=== PATIENT | male | born 1955 | race Caucasian/White ===

== ENCOUNTER 2024-04-04 11:07 | Outpatient (OUT) | payer OTHER, SELFPAY ==
[2024-04-04 11:56] LABS: Basophils Absolute Auto 0.1 10^3/uL (0.0-0.1); Basophils Percent Auto 0.9 % (0.2-2.0); Eosinophils Absolute Auto 0.3 10^3/uL (0.0-0.7); Eosinophils Percent Auto 4.6 % (0.9-7.0); Hematocrit 39.5 % (42.0-54.0); Hemoglobin 13.5 g/dL (14.0-18.0); Immature Granulocytes Abs Auto 0.04 10^3/uL (0.00-0.03); Immature Granulocytes Pct Auto 0.7 % (0.0-0.5); Lymphocytes Absolute Auto 1.6 10^3/uL (1.2-3.8); Lymphocytes Percent Auto 27.6 % (20.5-60.0); Mean Corpuscular HGB Conc 34.2 g/dL (29.9-35.2); Mean Corpuscular Hemoglobin 32.3 pg (25.9-34.0); Mean Corpuscular Volume 94.5 fL (80.0-94.0); Mean Platelet Volume 9.9 fL (9.5-13.5); Monocytes Absolute Auto 0.6 10^3/uL (0.3-0.8); Monocytes Percent Auto 9.9 % (1.7-12.0); Neutrophils Absolute Auto 3.3 10^3/uL (1.4-6.5); Neutrophils Percent Auto 56.3 % (43.0-75.0); Platelet Count 189 10^3/uL (150-450); Red Blood Count 4.18 10^6/uL (4.70-6.10); Red Cell Distribution Width 12.6 % (11.0-15.0); White Blood Count 5.9 10^3/uL (4.0-11.0)
[2024-04-04 14:05] LABS: Alanine Aminotransferase 38 U/L (16-63); Albumin Level 3.4 g/dL (3.4-5.0); Alkaline Phosphatase 74 U/L (46-116); Anion Gap 15.4; Aspartate Amino Transferase 22 U/L (15-37); BUN Creatinine Ratio 23.3; Bilirubin Total 0.5 mg/dL (0.2-1.0); Calcium 8.5 mg/dL (8.5-10.1); Carbon Dioxide 24.4 mmol/L (21.0-32.0); Chloride 105 mmol/L (98-107); Chol HDL Ratio 4.4; Cholesterol 164 mg/dL (<=200); Estimated GFR (African America >60 (>=60); Estimated GFR (Non-African Ame >60 (>=60); Free T3 1.91 pg/mL (2.18-3.98); Globulin 3.4 g/dL; Glucose 117 mg/dL (74-106); HDL Cholesterol 37 mg/dL (40-60); Potassium 3.8 mmol/L (3.5-5.1); Sodium 141 mmol/L (136-145); Thyroid Stimulating Hormone 1.445 uIU/mL (0.358-3.740); Total Protein 6.8 g/dL (6.4-8.2); Triglycerides 330 mg/dL (<=150); Uric Acid 7.5 mg/dL (3.5-7.2)
[2024-04-04 15:26] LABS: Estimated Average Glucose 114 mg/dL; Glycohemoglobin A1C 5.6 % (4.5-6.2)
== END 2024-04-04 11:08 | disposition home or self-care (01) ==
LOC: LAB 11:11
PROVIDERS: PCP Family Medicine; Visit Provider Family Medicine
DX: Z00.00 Encounter for general adult medical examination without abnormal findings (principal)
CPT/HCPCS: 36415; 80053; 80061; 83036; 84436; 84443; 84481; 84550; 85025

== ENCOUNTER 2024-05-10 12:34 | Outpatient (OUT) | payer OTHER, SELFPAY ==
[2024-05-10 13:16] LABS: Free T3 1.59 pg/mL (2.18-3.98); Thyroid Stimulating Hormone 1.188 uIU/mL (0.358-3.740)
== END 2024-05-10 12:35 | disposition home or self-care (01) ==
LOC: LAB 12:35
PROVIDERS: PCP Family Medicine; Visit Provider Family Medicine
DX: E03.9 Hypothyroidism, unspecified (principal)
CPT/HCPCS: 36415; 84436; 84443; 84481

== ENCOUNTER 2024-08-07 10:53 | Outpatient (OUT) | payer OTHER, SELFPAY ==
--- OUTSIDE RECORDS SUMMARY | 2024-08-07 11:16 | XMS_ITS | CCD ---
Author Organization [facility] Care Team Providers Care Precision Grinder External Name Role Phone Agnes Villalobos Unavailable NO FAMILY, PHYSICIAN Primary Care Provider Unava EMERSON Justin Attending Provider Agnes Villalobos Admitting Unavailable Agnes Villalobos Attending Unavailable NO FAMILY, PHYSICIAN Primary Care Unavailable NONE, XXXX Primary Care Physician Unavailab mary TY ., ANAHI Attending Unavailable JACINTA .ROSA Consulting UnavailANAHI Burt Admitting Unavailable RADHA ., DR BARAJAS Consulting Unavailable HOY ., DR BARAJAS Attending Unavailable HOY ., DR BARAJAS Admitting Unavailable RADHA ., DR BARAJAS Primary Care Unavailable RADHA ., DR BARAJAS Consulting Unavailable RADHA ., DR BARAJAS Attending Unavailable CARLAY ., DR BARAJAS Admitting Unavailable RADHA ., DR BARAJAS Primary Care Unavailable Karl Garcia MD Primary Care Provider JUSTICE CORDON Referring Unavailable Karl Garcia Primary Care Physician [phone] Petros SANCHEZ Attending Unavailable Karl Garcia Referring Unavailable Allergies Allergy Classification Reported Allergen(s) Allergy Type Date of Onset Reaction(s) Facility (8 sources) Sulfacetamide / Sulfur Drug Allergy Unknown iSpecimen Other (4 sources) Sulfonamides (Antibiotic); Translations: [sulfa drugs] Drug allergy eyes [facility] (1 source) Sulfonamides (Antibiotic) Drug allergy (disorder) [facility] (1 source) Sulfonamides (Antibiotic) Propensity to adverse reactions to drug 8 [facility] Medications Current Medications Medication Drug Class(es) Dates Sig (Normalized) Sig (Original) allopurinol 100 mg oral tablet (8 sources) Xanthine Oxidase Inhibitor Start: 01-22-2022 take 1 tablet by mouth once daily as needed for pain allopurinol 100 mg Tab 100 mg = 1 tab(s), Oral, Daily, PRN Gout pain, Refills(s) 0 Start Date: 12/29/22 Status: Ordered Aspir-81 (8 sources) Aspir-81 Active aspirin 81 mg delayed release oral tablet (6 sources) Platelet Aggregation Inhibitor, Nonsteroidal Anti-inflammatory Drug Start: 01-19-2023 take 1 tablet by mouth twice daily aspirin 81 mg Oral EC Tab 81 mg = 1 tab(s), Oral, BID, # 60 tab(s), Refills(s) 0, Pharmacy: [id number], 190, cm, 12/29/22 13:55:00 EST, Height/Length Dosing, 112.4, kg, 12/29/22 13:55:00 EST, Weight Dosing Start Date: 01/19/23 Status: Ordered Start: 12-29-2022 take 1 capsule by mouth once d aily aspirin 81 mg oral capsule 81 mg = 1 cap(s), Oral, Daily, Blood Thinner Start Date: 12/29/22 Status: Ordered Start: 12-01-2017 take 1 tablet by mouth once da eli aspirin 81 mg Take 1 tablet (81 mg total) by mouth daily. 30 tablet 11 12/01/2017 Active atenolol 50 mg oral tablet (12 sources) beta-Adrenergic Prabhjot Start: 12-29-2022 take 1 tablet by mouth in the morning atenoloL (TENORMIN) 50 mg tablet Take 1 tablet (50 mg total) by mouth in the morning. 90 tablet 3 04/23/2023 Active cefadroxil 500 mg oral capsule (1 source) Cephalosporin Antibacterial Start: 01-19-2023 End: 01-21-2023 take 1 capsule by mouth every twelve hours cefadroxil 500 mg Cap 500 mg = 1 cap(s), Oral, q12hr, X 2 day(s), # 4 cap(s), Refills(s) 0, Pharmacy: [facility] #[id number], 190, cm, 12/29/22 13:55:00 EST, Height/Length Dosing, 112.4, kg, 12/29/22 13:55:00 EST, Weight Dosing Start Date: 01/19/23 Stop Date: 01/21/23 Status: Ordered Celebrate Multivitamin (2 sources) Start: 12-29-2022 take 1 tablet by mouth once daily Celebrate Multivitamin 1 tab(s), Oral, Daily, Prophylaxis Start Date: 12/29/22 Status: Ordered cyclobenzaprine hydrochloride 10 mg oral tablet (1 source) Muscle Relaxant Start: 11-28-2022 take 1 tablet by mouth every eight hours Cyclobenzaprine HCl 10 MG 1 tablet as needed Orally Three times a day for 10 days Nov, Active diclofenac sodium 75 mg delayed release oral tablet (15 sources) Nonsteroidal Anti-inflammatory Drug Start: 12-29-2022 take 1 tablet by mouth once daily diclofenac sodium 75 mg Oral EC Tab 75 mg = 1 tab(s), Oral, Daily Start Date: 12/29/22 Status: Ordered Start: 02-07-2022 take 1 tablet by jey th twice daily diclofenac sodium 75 mg Oral EC Tab 75 mg = 1 tab(s), Oral, BID Start Date: 12/29/22 Status: Ordered Start: 01-22-2022 take 1 tablet by jey th every twenty-four hours Diclofenac Sodium 75 MG 1 tablet as needed Orally Once Daily for 90 day(s) Dec, Active Diclofenac Activ e docosahexaenoic acid/epa (FISH OIL ORAL) (1 source) docosahexaenoic acid/epa (FISH OIL ORAL) Take by mouth daily. 0 Active docusate sodium 100 mg oral capsule (2 sources) Start: 01-19-2023 take 1 capsule by mouth twice daily as needed for constipation Colace 100 mg Cap 100 mg = 1 cap(s), Oral, BID, PRN for constipation, # 40 cap(s), Refills(s) 0, Pharmacy: [facility] #[id number], 190, cm, 12/29/22 13:55:00 EST, Height/Length Dosing, 112.4, kg, 12/29/22 13:55:00 EST, Weight Dosing Start Date: 01/19/23 Status: Ordered Fish Oils (3 sources) Start: 05-09-2024 take 2 capsules by mouth twice daily Fish Oil 1000 mg oral capsule 2,000 mg = 2 cap(s), Oral, BID, Refills(s) 0 Start Date: 05/09/24 Status: Ordered Start: 12-29-2022 take 1 capsule by mo uth once daily Fish Oil 1000 mg oral capsule 1,000 mg = 1 cap(s), Oral, Daily, Prophylaxis Start Date: 12/29/22 Status: Ordered flecainide acetate 100 mg oral tablet (12 sources) Antiarrhythmic Start: 12-29-2022 take 1 tablet by mouth every twelve hours flecainide 100 mg Tab 100 mg = 1 tab(s), Oral, q12hr, Refills(s) 0, Other (see comment) Start Date: 12/29/22 Status: Ordered Start: 11-03-2022 take 1 tablet by jey th twice daily flecainide (TAMBOCOR) 100 mg tablet Indications: Paroxysmal atrial fibrillation (CMS-HCC) TAKE 1 TABLET(100 MG) BY MOUTH TWICE DAILY 60 tablet 0 11/03/2022 Active Flecainide Aceta te Active [id number] ORAL (1 source) GLUCOSAMINE-COND [id number] ORAL Take by mouth daily. 0 Active hydrALAZINE hydrochloride 25 mg oral tablet (2 sources) Arteriolar Vasodilator S t a r t : 0 5 - 1 0 - 2 0 2 3 E n d : 0 1 - 2 2 - 2 0 2 4 take 1 tablet by mouth once daily in the morning, then take 1 tablet by mouth once daily at bedtime hydrALAZINE (APRESOLINE) 25 mg tablet Indications: Essential hypertension, benign TAKE 1 TABLET BY MOUTH EVERY MORNING AND 1 TABLET EVERY NIGHT AT BEDTIME 180 tablet 0 11/22/2023 Active hydroCHLOROthiazide 12.5 mg / lisinopril 20 mg oral tablet (8 sources) Thiazide Diuretic, Angiotensin Converting Enzyme Inhibitor S t a r t : 0 5 - 0 3 - 2 0 2 3 take 2 tablets by mouth once in the morning lisinopril-hydroCHLOROthiazide (PRINZIDE,ZESTORETIC) 20-12.5 mg per tablet Take 2 tablets by mouth in the morning. FINAL REFILL, PT WILL NEED MAGNESIUM LEVEL FOR FURTHER REFILLS. 60 tablet 0 03/03/2023 Active Start: 12-29-2022 take 1 tablet by jey th once daily hydrochlorothiazide-lisinopril 12.5 mg-2 0 mg Tab 1 tab(s), Oral, Daily, High blood pressure Start Date: 12/29/22 Status: Ordered Start: 11-29-2021 take 1 tablet by jey th every twenty-four hours Lisinopril-hydroCHLOROthiazide 20-12.5 M G 1 tablet Orally Once a day for 90 day(s) Nov, Active lisinopril 20 mg oral tablet (8 sources) Angiotensin Converting Enzyme Inhibitor take 1 tablet by mouth every twenty-four hours Lisinopril 20 MG 1 tablet Orally Once a day for 90 days Active methylPREDNISolone 4 mg oral tablet (1 source) Corticosteroid Star t: 11-02 methylPREDNISolone 4 MG as directed Orally Once a day for 6 days Nov, Active Multi Vitamins oral tablet (1 source) Star t: 07-21 take 1 tablet by mouth once daily Multi Vitamins oral tablet 1 tab(s), Oral, Daily, Refill(s) 0 Start Date: 05/09/24 Status: Ordered multivitamin capsule (1 source) take 1 capsule by mouth in the morning multivitamin capsule Take 1 capsule by mouth in the morning. 0 Active oxyCODONE hydrochloride 5 mg oral tablet (2 sources) Opioid Agonist Star t: 12-31 oxyCODONE 5 mg Tab 5 mg = 1 tab(s), Oral, As Directed, 1-2 po q4-6 hrs prn pain Dx: M16.12, Z96.642 Duration: 7days, # 40 tab(s), Refills(s) 0, Pharmacy: [facility] #[id number], 190, cm, 12/29/22 13:55:00 EST, Height/Length Dosing, 112.4, kg, 12/29/22 13:55:00... Start Date: 01/19/23 Status: Ordered sildenafil 100 mg oral tablet (19 sources) Phosphodiesterase 5 Inhibitor Star t: 04-01 sildenafil 100 mg Tab 100 mg = 1 tab(s), Oral, q72hr, PRN erectile dysfunction, Refills(s) 0 Start Date: 04/11/24 Status: Ordered Start: 11-10-2021 take 1 tablet by jey th every twenty-four hours Sildenafil Citrate 100 MG 1 tablet as needed Orally Once a day for 24 days Nov, Active Start: 11-10-2021 take 1 tablet by jey th once daily as needed Sildenafil Citrate - 1 tablet as needed Orally Once a day for 24 days Nov, Active Sildenafil Citra te Active Turmeric extract (1 source) TURMERIC ORAL Ta ke by mouth daily. 0 Active Vitamin B Complex (1 source) vitamin B comple x (B COMPLEX ORAL) Take by mouth daily. 0 Active Vitamin B Complex oral capsule (2 sources) Start: 12-29-2022 take 1 capsule by mouth once daily Vitamin B Complex oral capsule 1 cap(s), Oral, Daily, Prophylaxis Start Date: 12/29/22 Status: Ordered Vitamin D 1000 intl units (25 mcg) Tab (2 sources) Start: 12-29-2022 take 1 tablet by mouth once daily Vitamin D 1000 intl units (25 mcg) Tab 25 mcg = 1 tab(s), Oral, Daily Start Date: 12/29/22 Status: Ordered Problems Active Problems Problem Classification Problem Date Documented Date Episodic/Chronic Acute bronchitis (8 sources) Acute bronchitis; Translations: [Acute bronchitis] Episodic Cardiac dysrhythmias (12 sources) Atrial fibrillation; Translations: [Unspecified atrial fibrillation] Onset: 09-29-2021 Resolved: 09-29-2021 Chronic Conduction disorders (1 source) First degree atrioventricular block; Translations: [Atrioventricular block, first degree] Onset: 11-07-2020 11-07-2020 Chronic Deficiency and other anemia (2 sources) Anemia; Translations: [Anemia, unspecified] Onset: 05-09-2024 Episodic Essential hypertension (17 sources) Essential hypertension; Translations: [Essential (primary) hypertension] Onset: 09-29-2021 Resolved: 09-29-2021 Chronic Gout and other crystal arthropathies (1 source) Gout 04-11-2024 Chronic Heart valve disorders (1 source) Mitral valve regurgitation; Translations: [Nonrheumatic mitral (valve) insufficiency] Onset: 10-16-2019 10-16-2019 Chronic Osteoarthritis (6 sources) Degenerative joint disease involving multiple joints; Translations: [Polyosteoarthritis, unspecified] Chronic Other aftercare (1 source) termite treater helper (current) use of aspirin; Translations: [TECHNOLOGY INTEGRATION SPECIALIST CURRENT USE OF ASPIRIN] Onset: 01-04-2023 Episodic Other aftercare (1 source) Other retirement (current) drug therapy; Translations: [OTH TECHNOLOGY INTEGRATION SPECIALIST CURRENT DRUG THERAPY] Onset: 01-04-2023 Episodic Other circulatory disease (3 sources) H/O: atrial fibrillation 12-29-2022 Episodic Other male genital disorders (2 sources) Secondary erectile dysfunction; Translations: [Erectile dysfunction due to diseases classified elsewhere] Chronic Other male genital disorders (1 source) Erectile dysfunction due to diseases classified elsewhere Chronic Other male genital disorders (1 source) Impotence 04-11-2024 Chronic Other non-traumatic joint disorders (1 source) Pain in left hip Episodic Other nutritional; endocrine; and metabolic disorders (1 source) Body mass index 30+ - obesity 05-09-2024 Chronic Other nutritional; endocrine; and metabolic disorders (1 source) Obese class III 04-11-2024 Chronic Other screening for suspected conditions (not mental disorders or infectious disease) (1 source) Electrocardiogram abnormal; Translations: [Abnormal electrocardiogram [ECG] [EKG]] 11-29-2017 Episodic Unclassified (1 source) Pain in left hip; Translations: [Pain in left hip] Onset: 11-28-2022 Urinary tract infections (4 sources) Urinary tract infection, site not specified; Translations: [UTI SITE NOT SPECIFIED] Onset: 02-25-2023 Episodic Past or Other Problems Problem Classification Problem Date Documented Da te Episodic/Chronic Cardiac dysrhythmias (1 source) Palpitations; Translations: [Palpitations] Onset: 12-04-2020 12-04-2020 Episodic Other lower respiratory disease (1 source) Dyspnea; Translations: [Shortness of breath] Onset: 12-04-2020 12-04-2020 Episodic Results Test Name Value Interpretation Reference Range Facility Ambulatory Visit Summaryon 0 05-09-2024 Ambulatory Visit Summary Ambulatory Visit Summary PETROS MEANS :1955 Visit Date:05/09/2024 Ambulatory Visit Instructions Your Diagnosis Anemia Your Care Team Attending Physician - LAURA GRIJALVA, Petros Gutierrez Primary Care Physician - Radha GRIJALVA, Karl Referring Physician - Karl Garcia MD This Is Your Medications List Contact prescribing physician if questions or concerns allopurinol (allopurinol 100 mg Tab) aspirin (aspirin 81 mg oral capsule) atenolol (atenolol 50 mg Tab) diclofenac (diclofenac sodium 75 mg Oral EC Tab) flecainide (flecainide 100 mg Tab) hydrochlorothiazide- lisinopril (hydrochlorothiazide -lisinopril 12.5 mg-20 mg Tab) multivitamin (Multi Vitamins oral tablet) omega-3 polyunsaturated fatty acids (Fish Oil 1000 mg oral capsule) sildenafil (sildenafil 100 mg Tab) Procedures Performed Hip arthroplasty (01/19/2023), History of tonsillectomy (1962), Achilles tendon repair. Discharge Vitals Heart Rate (Peripheral) 72 Respiratory Rate 16 Blood Pressure 128/82 Height 185.4 cm Height 73 in Weight 112 kg Weight 246.4 lb BMI 32.58 Medications What How Much When Instructions Unchanged allopurinol (allopurinol 100 mg Tab) 1 Tablets By Mouth Every day as needed for Gout pain Contact prescribing physician if questions or concerns Unchanged aspirin (aspirin 81 mg oral capsule) 1 Capsules By Mouth Every day Contact prescribing physician if questions or concerns Unchanged atenolol (atenolol 50 mg Tab) 1 Tablets By Mouth Every day Contact prescribing physician if questions or concerns Unchanged diclofenac (diclofenac sodium 75 mg Oral EC Tab) 1 Tablets By Mouth 2 times a day Contact prescribing physician if questions or concerns Unchanged flecainide (flecainide 100 mg Tab) 1 Tablets By Mouth Every 12 hours Contact prescribing physician if questions or concerns Unchanged hydrochlorothiazide- lisinopril (hydrochlorothiazide -lisinopril 12.5 mg-20 mg Tab) 1 Tablets By Mouth Every day Contact prescribing physician if questions or concerns Unchanged multivitamin (Multi Vitamins oral tablet) 1 Tablets By Mouth Every day Contact prescribing physician if questions or concerns Unchanged omega-3 polyunsaturated fatty acids (Fish Oil 1000 mg oral capsule) 2 Capsules By Mouth 2 times a day Contact prescribing physician if questions or concerns Unchanged sildenafil (sildenafil 100 mg Tab) 1 Tablets By Mouth Every 72 hours as needed for erectile dysfunction Contact prescribing physician if questions or concerns Allergies sulfa drugs (eyes swell) Problems Ongoing - Any problem that you are currently receiving treatment for. Anemia Atrial fibrillation BMI 32.0-32.9,adult Class 3 obesity Erectile dysfunction Gout Hypertension Patient Survey You may receive a survey via text or e-mail asking about your office visit. Please share your experience with us by completing your survey. We appreciate your feedback and thank you for choosing us for your care. Normal [facility] Physician Referralon 024 Physician Referral [phone] [id number] Normal [facility] CULTURE URINEon 03-14-2023 CULTURE URINE Isolate 1 Enterobacter aerogenes >100,000 cfu/mL of ORGANISM 1 Enterobacter aerogenes ANTIBIOTIC M.I.C RX STATUS Piperacillin/Tazobac rose >=128 R F Cefazolin >=64 R F Ceftazidime >=64 R F Ceftriaxone 16 I F Ertapenem 1 S F Imipenem 0.5 S F Amikacin <=2 S F Gentamicin <=1 S F Tobramycin <=1 S F Ciprofloxacin <=0.25 S F Levofloxacin <=0.12 S F Nitrofurantoin 64 I F Trimethoprim/Sulfame thoxazole <=20 S F Normal [facility] Comment on above: Performed By: #### U RCX #### [facility] [address] [place] [address] Dr. Pebbles Ayers UA RANDOM W/MICROSCOPICon BACTERIA LARGE Abnormal NONE SEEN [facility] Comment on above: Performed By: #### U AMIC #### [facility] [address] [place] [address] Dr. Pebbles Ayers Bilirubin Ql (U) Negative Normal NEGATIVE [facility] Comment on above: Performed By: #### U AMIC #### [facility] [address] [place] [address] Dr. Pebbles Ayers CAST NONE SEEN Normal NONE SEEN [facility] Comment on above: Performed By: #### U AMIC #### [facility] [address] [place] [address] Dr. Pebbles Ayers Clarity (U) CLEAR Normal CLEAR [facility] Comment on above: Performed By: #### U AMIC #### [facility] [address] [place] [address] Dr. Pebbles Ayers Color (U) YELLOW Normal YELLOW [facility] Comment on above: Performed By: #### U AMIC #### [facility] [address] [place] [address] Dr. Pebbles Ayers Crystals LM Nom (Urine sed) NONE SEEN Normal NONE SEEN [facility] Comment on above: Performed By: #### U AMIC #### [facility] [address] [address] [address] Pebbles Ayers Epithelial cells LM Ql (Urine sed) FEW Abnormal NONE SEEN /RARE [facility] Comment on above: Performed By: #### U AMIC #### [facility] [address] [address] [address] Pebbles Ayers Glucose Ql (U) Negative Normal NEGATIVE [facility] Comment on above: Performed By: #### U AMIC #### [facility] [address] [address] [address] Pebbles Ayers Hemoglobin Ql (U) Negative Normal NEGATIVE [facility] Comment on above: Performed By: #### U AMIC #### [facility] [address] [address] [address] Pebbles Ayers Ketones Ql (U) Negative Normal NEGATIVE [facility] Comment on above: Performed By: #### U AMIC #### [facility] [address] [address] [address] Pebbles Ayers LEUKOCYTES SMALL Abnormal NEGATIVE [facility] Comment on above: Performed By: #### U AMIC #### [facility] [address] [address] [address] Pebbles Ayers MUCOUS NONE SEEN Normal NONE SEEN [facility] Comment on above: Performed By: #### U AMIC #### [facility] [address] [address] [address] Pebbles Ayers Nitrite Ql (U) Negative Normal NEGATIVE [facility] Comment on above: Performed By: #### U AMIC #### [facility] [address] [address] [address] Pebbles Ayers pH (U) 5.5 [pH] Normal 5-9 [facility] Comment on above: Performed By: #### U AMIC #### [facility] [address] [address] [address] Pebbles Ayers RBC NONE SEEN Abnormal 0-2 [facility] Comment on above: Performed By: #### U AMIC #### [facility] [address] [address] [address] Pebbles Ayers SPEC GRAVITY 1.015 Normal 1.005-<=1.025 [facility] Comment on above: Performed By: #### U AMIC #### [facility] [address] [place] [address] Dr. Pebbles Ayers UA PROTEIN Negative Normal NEGATIVE/ TRACE [facility] Comment on above: Performed By: #### U AMIC #### [facility] [address] [place] [address] Dr. Pebbles Ayers Urobilinogen Qn (U) 0.2 {Rainer'U}/dL Normal 0.2 - 1.0 [facility] Comment on above: Performed By: #### U AMIC #### [facility] [address] [place] [address] Dr. Pebbles Ayers WBC 20-50 Abnormal NONE SEEN [facility] Comment on above: Performed By: #### U AMIC #### [facility] [address] [place] [address] Dr. Pebbles Ayers CULTURE URINEon 02-27-2023 CULTURE URINE Isolate 1 Enterobacter aerogenes >100,000 cfu/mL of ORGANISM 1 Enterobacter aerogenes ANTIBIOTIC M.I.C RX STATUS Piperacillin/Tazobac rose <=4 S F Cefazolin <=4 R F Ceftazidime <=1 S F Ceftriaxone <=1 S F Ertapenem <=0.5 S F Imipenem 1 S F Amikacin <=2 S F Gentamicin <=1 S F Tobramycin <=1 S F Ciprofloxacin <=0.25 S F Levofloxacin <=0.12 S F Nitrofurantoin 32 S F Trimethoprim/Sulfame thoxazole <=20 S F Normal [facility] Comment on above: Performed By: #### U RCX #### [facility] [address] [place] [address] Dr. Pebbles Ayers UA RANDOM W/MICROSCOPICon BACTERIA SMALL Abnormal NONE SEEN [facility] Comment on above: Performed By: #### U AMIC #### [facility] [address] [place] [address] Dr. Pebbles Ayers Bilirubin Ql (U) Negative Normal NEGATIVE [facility] Comment on above: Performed By: #### U AMIC #### [facility] [address] [address] [address] Pebbles Ayers CAST NONE SEEN Normal NONE SEEN [facility] Comment on above: Performed By: #### U AMIC #### [facility] [address] [address] [address] Pebbles Ayers Clarity (U) CLOUDY Abnormal CLEAR [facility] Comment on above: Performed By: #### U AMIC #### [facility] [address] [address] [address] Pebbles Ayers Color (U) LT. YELLOW Normal YELLOW [facility] Comment on above: Performed By: #### U AMIC #### [facility] [address] [place] [address] Dr. Pebbles Ayers Crystals LM Nom (Urine sed) NONE SEEN Normal NONE SEEN [facility] Comment on above: Performed By: #### U AMIC #### [facility] [address] [address] [address] Pebbles Ayers Epithelial cells LM Ql (Urine sed) NONE SEEN Normal NONE SEEN /RARE [facility] Comment on above: Performed By: #### U AMIC #### [facility] [address] [address] [address] Pebbles Ayers Glucose Ql (U) Negative Normal NEGATIVE [facility] Comment on above: Performed By: #### U AMIC #### [facility] [address] [address] [address] Pebbles Ayers Hemoglobin Ql (U) Negative Normal NEGATIVE [facility] Comment on above: Performed By: #### U AMIC #### [facility] [address] [address] [address] Pebbles Ayers Ketones Ql (U) Negative Normal NEGATIVE [facility] Comment on above: Performed By: #### U AMIC #### [facility] [address] [address] [address] Pebbles Ayers LEUKOCYTES LARGE Abnormal NEGATIVE [facility] Comment on above: Performed By: #### U AMIC #### [facility] [address] [address] [address] Pebbles Ayers MUCOUS NONE SEEN Normal NONE SEEN [facility] Comment on above: Performed By: #### U AMIC #### [facility] [address] [address] [address] Pebbles Ayers Nitrite Ql (U) Positive Abnormal NEGATIVE [facility] Comment on above: Performed By: #### U AMIC #### [facility] [address] [address] [address] Pebbles Ayers pH (U) 6.0 [pH] Normal 5-9 [facility] Comment on above: Performed By: #### U AMIC #### [facility] [address] [place] [address] Dr. Peblbes Ayers RBC 0-2 Normal 0-2 [facility] Comment on above: Performed By: #### U AMIC #### [facility] [address] [place] [address] Dr. Pebbles Ayers SPEC GRAVITY 1.020 Normal 1.005-<=1.025 [facility] Comment on above: Performed By: #### U AMIC #### [facility] [address] [place] [address] Dr. Pebbles Ayers UA PROTEIN TRACE Normal NEGATIVE/ TRACE [facility] Comment on above: Performed By: #### U AMIC #### [facility] [address] [place] [address] Dr. Pebbles Ayers Urobilinogen Qn (U) 0.2 {Rainer'U}/dL Normal 0.2 - 1.0 [facility] Comment on above: Performed By: #### U AMIC #### [facility] [address] [place] [address] Dr. Pebbles Ayers WBC (U) [#/Vol] /uL Abnormal NONE SEEN [facility] Comment on above: Performed By: #### U AMIC #### [facility] [address] [place] [address] Dr. Pebbles Ayers CBC AUTO DIFFon 12-31-2022 BASO # 0.1 103/ul Normal 0.0-0.1 [facility] Comment on above: Performed By: #### C BC #### [facility] [address] [address] [address] Pebbles Ayers Basophils/100 WBC (Bld) 0.8 % Normal 0.2-2.0 [facility] Comment on above: Performed By: #### C BC #### [facility] [address] [address] [address] Pebbles Ayers EO # 0.2 103/ul Normal 0.0-0.7 [facility] Comment on above: Performed By: #### C BC #### [facility] [address] [address] [address] Pebbles Ayers Eosinophils/100 WBC (Bld) 3.3 % Normal 0.9-7.0 [facility] Comment on above: Performed By: #### C BC #### [facility] [address] [place] [address] Dr. Pebbles Ayers Erythrocyte distribution width (RBC) [Ratio] 11.9 % Normal 11.0-15.0 [facility] Comment on above: Performed By: #### C BC #### [facility] [address] [place] [address] Dr. Pebbles Ayers Hematocrit (Bld) [Volume fraction] 40.2 % Critically low 42.0-54.0 [facility] Comment on above: Performed By: #### C BC #### [facility] [address] [place] [address] Dr. Pebbles Ayers Hemoglobin (Bld) [Mass/Vol] 14.2 g/dL Normal 14.0-18.0 [facility] Comment on above: Performed By: #### C BC #### [facility] [address] [place] [address] Dr. Pebbles Ayers IG # 0.06 10e3/ul Critically high 0.00-0.[address] [facility] Comment on above: Performed By: #### C BC #### [facility] [address] [address] [address] Pebbles Ayers IG % 0.8 % Critically high 0.0-0.5 [facility] Comment on above: Performed By: #### C BC #### [facility] [address] [place] [address] Dr. Pebbles Ayers LYMPH # 2.1 103/ul Normal 1.2-3.8 [facility] Comment on above: Performed By: #### C BC #### [facility] [address] [address] [address] Pebbles Ayers Lymphocytes/100 WBC (Bld) 29.0 % Normal 20.5-60.0 [facility] Comment on above: Performed By: #### C BC #### [facility] [address] [place] [address] Dr. Pebbles Ayers MANUAL DIFF REQ NO Normal [facility] Comment on above: Performed By: #### C BC #### [facility] [address] [place] [address] Dr. Pebbles Ayers MCH (RBC) [Entitic mass] 33.1 pg Normal 25.9-34.0 [facility] Comment on above: Performed By: #### C BC #### [facility] [address] [place] [address] Dr. Pebbles Ayers MCHC (RBC) [Mass/Vol] 35.3 g/dL Critically high 29.9-35.2 [facility] Comment on above: Performed By: #### C BC #### [facility] [address] [place] [address] Dr. Pebbles Ayers MCV (RBC) [Entitic vol] 93.7 fL Normal 80.0-94.0 [facility] Comment on above: Performed By: #### C BC #### [facility] [address] [place] [address] Dr. Pebbles Ayers MONO # 0.7 103/ul Normal 0.3-0.8 [facility] Comment on above: Performed By: #### C BC #### [facility] [address] [place] [address] Dr. Pebbles Ayers Monocytes/100 WBC (Bld) 9.4 % Normal 1.7-12.0 [facility] Comment on above: Performed By: #### C BC #### [facility] [address] [address] [address] Pebbles Ayers NEUT # 4.2 103/ul Normal 1.4-6.5 [facility] Comment on above: Performed By: #### C BC #### [facility] [address] [address] [address] Pebbles Ayers Neutrophils/100 WBC (Bld) 56.7 % Normal 43.0-75.0 [facility] Comment on above: Performed By: #### C BC #### [facility] [address] [address] [address] Pebbles Ayers Platelet mean volume (Bld) [Entitic vol] 9.9 fL Normal 9.5-13.5 [facility] Comment on above: Performed By: #### C BC #### [facility] [address] [place] [address] Dr. Pebbles Ayers PLT 233 103/ul Normal 150-450 [facility] Comment on above: Performed By: #### C BC #### [facility] [address] [address] [address] Pebbles Ayers RBC 4.29 106/ul Critically low 4.70-6.10 [facility] Comment on above: Performed By: #### C BC #### [facility] [address] [address] [address] Pebbles Ayers WBC 7.4 103/ul Normal 4.0-11.0 [facility] Comment on above: Performed By: #### C BC #### [facility] [address] [address] [address] Pebbles Ayers PROF 14(COMP METB)on 023 Albumin [Mass/Vol] 3.9 g/dL Normal 3.4-5.0 [facility] Comment on above: Performed By: #### C MP, HSTROPN #### [facility] [address] [place] [address] Dr. Pebbles Ayers Albumin/Globulin [Mass ratio] 1.2 {ratio} Normal [facility] Comment on above: Performed By: #### C MP, HSTROPN #### [facility] [address] [address] [address] Pebbles Ayers ALP [Catalytic activity/Vol] 84 U/L Normal 46-116 [facility] Comment on above: Performed By: #### C MP, HSTROPN #### [facility] [address] [address] [address] Pebbles Ayers ALT [Catalytic activity/Vol] 40 U/L Normal 16-63 [facility] Comment on above: Performed By: #### C MP, HSTROPN #### [facility] [address] [address] [address] Pebbles Ayers Anion gap [Moles/Vol] 12.4 mmol/L Normal [facility] Comment on above: Performed By: #### C MP, HSTROPN #### [facility] [address] [address] [address] Pebbles Ayers AST [Catalytic activity/Vol] 26 U/L Normal 15-37 [facility] Comment on above: Performed By: #### C MP, HSTROPN #### [facility] [address] [address] [address] Pebbles Ayers Bilirubin [Mass/Vol] 0.7 mg/dL Normal 0.2-1.0 [facility] Comment on above: Performed By: #### C MP, HSTROPN #### [facility] [address] [address] [address] Pebbles Ayers Calcium [Mass/Vol] 9.2 mg/dL Normal 8.5-10.1 [facility] Comment on above: Performed By: #### C MP, HSTROPN #### [facility] [address] [address] [address] Pebbles Ayers Chloride [Moles/Vol] 101 mmol/L Normal 98-107 [facility] Comment on above: Performed By: #### C MP, HSTROPN #### [facility] [address] [address] [address] Pebbles Ayers CO2 [Moles/Vol] 29.6 mmol/L Normal 21.0-32.0 [facility] Comment on above: Performed By: #### C LATOYA, HSTROPN #### [facility] [address] [address] [address] Pebbles Ayers Creatinine [Mass/Vol] 1.16 mg/dL Normal 0.70-1.30 [facility] Comment on above: Performed By: #### C LATOYA, HSTROPN #### [facility] [address] [address] [address] Pebbles Ayers EGFR-AF TUVALUAN >60 Normal >=60 [facility] Comment on above: Performed By: #### C LATOYA, HSTROPN #### [facility] [address] [address] [address] Pebbles Ayers EGFR-NON AF TUVALUAN >60 Normal >=60 [facility] Comment on above: Performed By: #### C LATOYA, HSTROPN #### [facility] [address] [address] [address] Pebbles Ayers Globulin (S) [Mass/Vol] 3.3 g/dL Normal [facility] Comment on above: Performed By: #### C LATOYA, HSTROPN #### [facility] [address] [address] [address] Pebbles Ayers Glucose [Mass/Vol] 114 mg/dL Critically high 74-106 [facility] Comment on above: Performed By: #### C LATOYA, HSTROPN #### [facility] [address] [address] [address] Pebbles Ayers Potassium [Moles/Vol] 4.0 mmol/L Normal 3.5-5.1 [facility] Comment on above: Performed By: #### C LATOYA, HSTROPN #### [facility] [address] [address] [address] Pebbles Ayers Protein [Mass/Vol] 7.2 g/dL Normal 6.4-8.2 [facility] Comment on above: Performed By: #### C LATOYA, HSTROPN #### [facility] [address] [place] [address] Dr. Pebbles Ayers Sodium [Moles/Vol] 139 mmol/L Normal 136-145 [facility] Comment on above: Performed By: #### C LATOYA, HSTROPN #### [facility] [address] [place] [address] Dr. Pebbles Ayers Urea nitrogen [Mass/Vol] 31.0 mg/dL Critically high 7.0-18.0 [facility] Comment on above: Performed By: #### C LATOYA, HSTROPN #### [facility] [address] [place] [address] Dr. Pebbles Ayers Urea nitrogen/Creatinin e [Mass ratio] 26.7 mg/mg Normal [facility] Comment on above: Performed By: #### C LATOYA, HSTROPN #### [facility] [address] [place] [address] Dr. Pebbles Ayers PROTIMEon 12-31-2022 INR Coag (PPP) [Relative time] 0.97 {INR} Normal [facility] Comment on above: Performed By: #### P TT, PT #### [facility] [address] [place] [address] Dr. Pebbles Ayers INR GUIDELINES SEE BELOW Normal [facility] Comment on above: Result Comment: NICHOLE RED INR: 2.0 - 3.0 CONDITIONS NOT LISTED BELOW 2.5 - 3.5 FOR PROSTHETIC HEART VALVE REPLACEMENT 2.5 - 3.5 RECURRENT THROMBOSIS Performed By: #### P TT, PT #### [facility] [address] [place] [address] Dr. Pebbles Ayers PT Coag (PPP) [Time] 10.3 s Normal 9.0-11.6 [facility] Comment on above: Performed By: #### P TT, PT #### [facility] [address] [place] [address] Dr. Pebbles Ayers PTTon 12-31-2022 aPTT Coag (Bld) [Time] 27.6 s Normal 22.3-36.2 [facility] Comment on above: Performed By: #### P TT, PT #### [facility] [address] [place], [place] [address] Dr. Pebbles Ayers TROPONIN, HIGH SENSITIVITYon 12-31-2022 HSTROP 6.2 pg/mL Normal 4.0-76.1 [facility] Comment on above: Result Comment: CUT- OFF POINTS HAVE BEEN ESTABLISHED BASED ON THE FOURTH UNIVERSAL DEFINITIONS OF MYOCARDIAL INFARCTION. THE UPPER REFERENCE LIMIT (URL) OF TROPONIN, DEFINED THE 99TH PERCENTILE OF cTnI DISTRIBUTION IN A REFERENCE POPULATION, HAS BEEN CONFIRMED THE DECISION THRESHOLD FOR VT DIAGNOSIS. Performed By: #### C MP, HSTROPN #### [facility] [address] [place], [place] [address] Dr. Pebbles Ayers XR hip LT min 2V(w/wo pelvis )*on 11-28-2022 XR hip LT min 2V(w/wo pelvis)* [facility] [place] [address] [place] [address] XRay Report Signed Patient: Petros Means MR#: [id number] : 1955 Acct:[id number] Age/Sex: 67 / M ADM Date: 11/28/22 Loc: XDUCLY Room: Type: [facility] Attending Dr: Agnes NORMAN Copies to: AGNES VILLALOBOS Ordering Provider: AGNES VILLALOBOS Date of Service: 11/28/22 XR/XR hip LT min 2V(w/wo pelvis)*: LEFT HIP PAIN XR hip LT min 2V(w/wo pelvis)* 11/28/2022 1:03 PM SIGNS AND SYMPTOMS: Lateral and anterior left hip pain PROTOCOL: Frontal radiograph the pelvis with frontal and frog-leg views of the left hip COMPARISON: None FINDINGS: There is significant narrowing of the joint spaces of the hips left greater than right with subcortical sclerosis, subcortical cystic change, and partial collapse of the articular surface along the left femoral head. There is accompanying subcortical sclerosis and cystic change along the acetabular roof bilaterally. Degenerative changes are noted in the lumbar spine. There is no fracture or dislocation. 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 No fracture or dislocation. Impression dictated by: Adi Portillo M.D.11/28/2022 1:12 PM Dictation Location: [id number]-[id number] Transcribed By: LENNIE 11/28/22 1312 Dictated By: Adi Portillo II, MD 11/28/22 1310 Signed By: 11/28/22 1312 Normal [facility] XR hip LT min 2V(w/wo pelvis)* [facility] [employer] Other XR hip LT min 2V(w/wo pelvis)* [facility] [address] [place] [employer] Other XR hip LT min 2V(w/wo pelvis)* [address] [place] [address] [employer] Other XR hip LT min 2V(w/wo pelvis)* [place] [address] [employer] Other XR hip LT min 2V(w/wo pelvis)* XRay Report [employer] Other XR hip LT min 2V(w/wo pelvis)* Signed [employer] Other XR hip LT min 2V(w/wo pelvis)* Patient: Petros Means MR#: [id number] [employer] Other XR hip LT min 2V(w/wo pelvis)* [id number] [employer] Other XR hip LT min 2V(w/wo pelvis)* : 1955 Acct:[id number] [employer] Other XR hip LT min 2V(w/wo pelvis)* Age/Sex: 67 / M ADM Date: 11/28/22 [employer] Other XR hip LT min 2V(w/wo pelvis)* Loc: XDUCLY Room: Type: [facility] [employer] Other XR hip LT min 2V(w/wo pelvis)* Attending Dr: Agnes Villalobos [facility] Other XR hip LT min 2V(w/wo pelvis)* Copies to: AGNES VILLALOBOS [facility] Other XR hip LT min 2V(w/wo pelvis)* Ordering Provider: AGNES VILLALOBOS [facility] Other XR hip LT min 2V(w/wo pelvis)* Date of Service: 11/28/22 [employer] Other XR hip LT min 2V(w/wo pelvis)* XR/XR hip LT min 2V(w/wo pelvis)*: LEFT HIP PAIN [employer] Other XR hip LT min 2V(w/wo pelvis)* XR hip LT min 2V(w/wo pelvis)* 11/28/2022 1:03 PM [employer] Other XR hip LT min 2V(w/wo pelvis)* SIGNS AND SYMPTOMS: Lateral and anterior left hip pain [employer] Other XR hip LT min 2V(w/wo pelvis)* PROTOCOL: Frontal radiograph the pelvis with frontal and frog-leg views of the left hip [employer] Other XR hip LT min 2V(w/wo pelvis)* COMPARISON: None [employer] Other XR hip LT min 2V(w/wo pelvis)* FINDINGS: [employer] Other XR hip LT min 2V(w/wo pelvis)* There is significant narrowing of the joint spaces of the hips left greater than right with [employer] Other XR hip LT min 2V(w/wo pelvis)* subcortical sclerosis, subcortical cystic change, and partial collapse of the articular surface [employer] Other XR hip LT min 2V(w/wo pelvis)* along the left femoral head. There is accompanying subcortical sclerosis and cystic change along the [employer] Other XR hip LT min 2V(w/wo pelvis)* acetabular roof bilaterally. Degenerative changes are noted in the lumbar spine. There is no [employer] Other XR hip LT min 2V(w/wo pelvis)* fracture or dislocation. 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 [employer] Other XR hip LT min 2V(w/wo pelvis)* No fracture or dislocation. [employer] Other XR hip LT min 2V(w/wo pelvis)* Impression dictated by: Adi Portillo M.D.11/28/2022 1:12 PM [employer] Other XR hip LT min 2V(w/wo pelvis)* Dictation Location: [facility]--13 [employer] Other XR hip LT min 2V(w/wo pelvis)* Transcribed By: LENNIE 11/28/22 1312 [employer] Other XR hip LT min 2V(w/wo pelvis)* Dictated By: Adi Portillo II, MD 11/28/22 1310 [employer] Other XR hip LT min 2V(w/wo pelvis)* Signed By: [employer] Other XR hip LT min 2V(w/wo pelvis)* 11/28/22 1312 [employer] Other Vital Signs Date Time Vital Sign Value Performing Clinician Facility 05-09-2024 13:26-0400 Blood Pressure Location Petros SANCHEZ [facility] 05-09-2024 13:26-0400 Diastolic blood pressure 82 mm[Hg] Petros PENDLETONL [facility] 05-09-2024 13:26-0400 Heart rate 72 /min Petros PENDLETONL [facility] 05-09-2024 13:26-0400 Respiratory rate 16 /min Petros PENDLETONL [facility] 05-09-2024 13:26-0400 Systolic blood pressure 128 mm[Hg] Petros PENDLETONL [facility] 01-19-2023 15:35-0400 Heart rate 59 /min Justice Pocos [facility] 01-19-2023 15:35-0400 SaO2% (BldA) [Mass fraction] 94 % Justice Pocos [facility] 01-19-2023 15:35-0400 Respiratory rate 16 /min Justice Pocos [facility] 01-19-2023 15:35-0400 Diastolic blood pressure 75 mm[Hg] Justice Pocos [facility] 01-19-2023 15:35-0400 Mean blood pressure 101 mm[Hg] Justice Pocos [facility] 01-19-2023 15:35-0400 Systolic blood pressure 153 mm[Hg] Justice Pocos [facility] 01-19-2023 15:35-0400 Body temperature 98.06 [degF] Justice Pocos [facility] 01-19-2023 13:48-0400 Heart rate 56 /min Justice Pocos [facility] 01-19-2023 13:48-0400 SaO2% (BldA) [Mass fraction] 92 % Justice Pocos [facility] 01-19-2023 13:48-0400 Respiratory rate 16 /min Justice Pocos [facility] 01-19-2023 13:48-0400 Diastolic blood pressure 76 mm[Hg] Justice Pocos [facility] 01-19-2023 13:48-0400 Mean blood pressure 99 mm[Hg] Justice Pocos [facility] 01-19-2023 13:48-0400 Systolic blood pressure 143 mm[Hg] Justice Pocos [facility] 01-19-2023 11:11-0400 Heart rate 61 /min Justice Pocos [facility] 01-19-2023 11:11-0400 SaO2% (BldA) [Mass fraction] 94 % Justice Pocos [facility] 01-19-2023 11:10-0400 Diastolic blood pressure 71 mm[Hg] Justice Pocos [facility] 01-19-2023 11:10-0400 Mean blood pressure 95 mm[Hg] Justice Pocos [facility] 01-19-2023 11:10-0400 Systolic blood pressure 143 mm[Hg] Justice Pocos [facility] 01-19-2023 11:10-0400 Respiratory rate 16 /min Justice Pocos [facility] 01-19-2023 11:10-0400 Body temperature 97.16 [degF] Justice Pocos [facility] 01-19-2023 11:00-0400 Mean blood pressure 93 mm[Hg] Justice Pocos [facility] 01-19-2023 10:50-0400 Blood Pressure Location Justice Pocos [facility] 01-19-2023 10:50-0400 Mean blood pressure 91 mm[Hg] Justice Pocos [facility] 01-19-2023 10:50-0400 Respiratory rate 9 /min Justice Pocos [facility] 01-19-2023 10:45-0400 Mean blood pressure 86 mm[Hg] Justice Pocos [facility] 01-19-2023 10:45-0400 Respiratory rate 16 /min Justice Pocos [facility] 01-19-2023 10:40-0400 FIO2 100 % Justice Pocos [facility] 01-19-2023 10:35-0400 FIO2 100 % Justice Pocos [facility] 01-19-2023 10:30-0400 FIO2 100 % Justice Pocos [facility] 01-19-2023 06:28-0400 Body temperature 97.7 [degF] Justice Pocos [facility] 01-19-2023 06:28-0400 Heart rate 56 /min Justice Pocos [facility] 11-28-2022 13:30-0500 Body height 185.42 cm Agnes Villalobos Other [employer] Other 11-28-2022 13:30-0500 Body mass index (BMI) [Ratio] 31.66 kg/m2 Agnes Villalobos Other [employer] Other 11-28-2022 13:30-0500 Body temperature 98 [degF] Agnes Villalobos Other [employer] Other 11-28-2022 13:30-0500 Body weight 108.86 kg Agnes Villalobos Other [employer] Other 11-28-2022 13:30-0500 Diastolic blood pressure 86 mm[Hg] Agnes Villalobos Other [employer] Other 11-28-2022 13:30-0500 Respiratory rate 18 /min Agnes Villalobos Other [employer] Other 11-28-2022 13:30-0500 SaO2% (BldA) [Mass fraction] 97 % Agnes Villalobos Other [employer] Other 11-28-2022 13:30-0500 Systolic blood pressure 159 mm[Hg] Agnes Villalobos Other [employer] Other 08-18-2022 14:00-0400 Body height 185.42 cm Agnes Villalobos Other [employer] Other 08-18-2022 14:00-0400 Body mass index (BMI) [Ratio] 32.06 kg/m2 Agnes Villalobos Other [employer] Other 08-18-2022 14:00-0400 Body temperature 97.3 [degF] Agnes Bhagatault Other [employer] Other 08-18-2022 14:00-0400 Body weight 110.22 kg Agnes Villalobos Other [employer] Other 08-18-2022 14:00-0400 Diastolic blood pressure 89 mm[Hg] Agnes Villalobos Other [employer] Other 08-18-2022 14:00-0400 Respiratory rate 16 /min Agnes Villalobos Other [employer] Other 08-18-2022 14:00-0400 SaO2% (BldA) [Mass fraction] 96 % Agnes Villalobos Other [employer] Other 08-18-2022 14:00-0400 Systolic blood pressure 153 mm[Hg] Agnes Villalobos Other [employer] Other 09-29-2021 11:30-0500 Body height 185.42 cm Agnes Villalobos Other [employer] Other 09-29-2021 11:30-0500 Body mass index (BMI) [Ratio] 30.74 kg/m2 Agnes Villalobos Other [employer] Other 09-29-2021 11:30-0500 Body temperature 97.3 [degF] Agnes Villalobos Other [employer] Other 09-29-2021 11:30-0500 Body weight 105.69 kg Agnes Villalobos Other [employer] Other 09-29-2021 11:30-0500 Diastolic blood pressure 85 mm[Hg] Agnes Bhagatault Other [employer] Other 09-29-2021 11:30-0500 Respiratory rate 16 /min Agnes Villalobos Other [employer] Other 09-29-2021 11:30-0500 SaO2% (BldA) [Mass fraction] 97.3 % Agnes Villalobos Other [employer] Other 09-29-2021 11:30-0500 Systolic blood pressure 140 mm[Hg] Agnes Villalobos Other [employer] Other Encounters Encounter Date Encounter Type Care Provider Facility Start: 05-09-2024 End: 05-09-2024 [facility] Start: 05-09-2024 End: 05-09-2024 Patient encounter procedure Petros SANCHEZ [facility] Start: 05-05-2024 ambulatory Petros SANCHEZ Facility:[facility] Start: 04-05-2024 ambulatory Petros SANCHEZ Facility:[facility] Start: 01-06-2024 End: 01-07-2024 ambulatory JUSTICE CORDON Not Available Start: 11-18-2023 Refill Diogenes gutierrez PA-C [facility] Comment on above: Med Refill Start: 03-12-2023 End: 03-13-[address] KARL GARCIA . Facility:[facility] Start: 02-25-2023 End: 02-26-[address] KARL GARCIA . Facility:[facility] Start: 01-19-2023 End: 01-19-2023 Admission to same day surgery center Justice Cordon [facility] Start: 12-31-2022 End: 12-31-2022 ambulatory ANAHI TY . Facility:[facility] Start: 12-04-2022 End: 04-05-2023 Recurring Justice Kam Pocos [facility] Start: 12-04-2022 End: 12-24-2022 Pre-admission assessment Justice Kam Pocos [facility] Start: 11-28-2022 End: 11-28-2022 ambulatory Agnes Villalobos Facility:[facility] Start: 11-28-2022 Office outpatient vi sit 15 minutes Agnes Villalobos [facility] Start: 11-28-2022 End: 11-28-2022 ambulatory PHYSICIAN [facility] Work Phone: Start: 11-28-2022 End: 11-28-2022 Patient encounter procedure PHYSICIAN [facility] Work Phone: Start: 08-18-2022 End: 08-18-2022 ambulatory Agnes Eulogio Other [employer] Other Start: 08-18-2022 Encounter for genera l adult medical examination without abnormal findings Agnes Villalobos [facility] Start: 08-18-2022 Periodic preventive med est patient 65yrs& older Agnes Villalobos [facility] Start: 08-13-2022 End: 08-13-2022 ambulatory Agnes Villalobos Other [facility] Other Start: 08-13-2022 Telephone encounter Agneskristin Mcfarlandl t [facility] Start: 02-07-2022 End: 02-07-2022 ambulatory Agnes Villalobos Other [facility] Other Start: 02-07-2022 Telephone encounter Agnes Leolaaul t [facility] Start: 01-21-2022 End: 01-21-2022 ambulatory Agnes Villalobos Other [facility] Other Start: 01-21-2022 Telephone encounter Agnes mason [facility] Start: 12-19-2021 End: 12-19-2021 ambulatory Agnes Villalobos Other [facility] Other Start: 12-19-2021 Telephone encounter Agnes mason [facility] Start: 11-10-2021 End: 11-10-2021 ambulatory Agnes Villalobos Other [facility] Other Start: 11-10-2021 Telephone encounter Agnes mason [facility] Start: 09-29-2021 End: 09-29-2021 ambulatory Agnes Villalobos Other [facility] Other Start: 09-29-2021 Encounter for genera l adult medical examination without abnormal findings Agnes Villalobos [facility] Start: 09-29-2021 Initial preventive medicine new patient 40-64yrs Agnes Eulogio [facility] Procedures Date Procedure Procedure Detail Performing Clinician Start: 01-19-2023 Repair of hip Justice Poc os Start: 11-28-2022 Plain X-ray of left hip PHYSICIAN NO FAMILY Start: 11-01-1960 History of tonsillectomy Justice Pocos Repair of tendo achilles Young id Pocos Plan of Treatment Date Care Activity Detail Author Start: 07-28-2024 Adult BMI Screening Adult BMI Screen ing [facility] Start: 07-28-2024 Tobacco Screening Tobacco Screening [facility] Start: 07-02-2023 Influenza vaccination Influenza Vacc ine [facility] Start: 2022 Fall Risk Screening Fall Risk Screen ing [facility] Start: 05-18-2021 DTaP,Tdap and Td Vac cines (3 - Td or Tdap) DTaP,Tdap and Td Vaccines (3 - Td or Tdap) [facility] Start: 2007 Administration of varicella zoster vaccine Zoster (Shingles) Vaccine (1 of 2) [facility] Start: 1975 Adult BMI Follow Up Plan Adult BMI Follow Up Plan [facility] Start: 1969 Depression Screening Depression Scre ening [facility] End: 11-22-2024 Magnesium [Mass/volume] in Serum or Plasma Magnesium Lab Routine Essential hypertension, benign 1 Occurrences starting 11/22/2023 until 11/22/2024 [facility] Work Phone: Comment on above: 1 Occurrences starti ng 11/22/2023 until 11/22/2024 Payers Date Payer Category Payer Medicare [id number] 2022 Self-pay [id number] 2022 Private Health Insurance [facility] [id number] 2022-Present [phone] [address] [address] [place] [address] [id number] 1959 Unknown [id number] 1957 Unknown [id number] 1957 Unknown [id number] 1957 Unknown [id number] 1957 Unknown [id number] 1957 Unknown [id number] Unknown [id number] Unknown [id number] Social History Date Type Detail Facility Unknown if ever smoked [facility] Other Start: 11-07-2020 End: 11-20-2020 Sex Assigned At [facility] Start: 1955 Sex Assigned At Male F [facility] Tobacco smoking status No Smokin g Status Entered [facility] Start: 11-17-2022 End: 05-09-2024 Tobacco smoking status NHIS Never smoked tobacco [facility] Start: 11-17-2022 Tobacco use and exposure Smokeless tobacco non-user [facility] Start: 07-28-2023 Alcohol intake Current drinke r of alcohol (finding) [facility] Start: 11-20-2020 End: 07-28-2023 Alcohol intake [facility] Frequency of Alcohol Consumption Never [facility] Start: 10-18-2018 Alcohol Comment [facility] Start: 1955 Sex Assigned At Not on file [facility] [employer] [facility] Medical Equipment Procedure Code Equipment Code Equipment Origin al Text Equipment Identifier Dates HIP TOTAL ROBOT ARTHROPLASTY Pocos DOJustice A 01/19/23 Unknown Hip L FDA Start: 01-19-2023 HIP TOTAL ROBOT ARTHROPLASTY Pocos DOJustice A 01/19/23 Unknown Hip L FDA Start: 01-19-2023 HIP TOTAL ROBOT ARTHROPLASTY Pocos DOJustice 01/19/23 Unknown Hip L FDA Start: 01-19-2023 HIP TOTAL ROBOT ARTHROPLASTY Pocos DOJustice 01/19/23 Unknown Hip L FDA Start: 01-19-2023 HIP TOTAL ROBOT ARTHROPLASTY Pocos DOJustice A 01/19/23 Unknown Hip L FDA Start: 01-19-2023 HIP TOTAL ROBOT ARTHROPLASTY Pocos DOJustice 01/19/23 Unknown Hip L FDA Start: 01-19-2023 HIP TOTAL ROBOT ARTHROPLASTY Pocos DO, Justice Kam 01/19/23 Unknown Hip L FDA Start: 01-19-2023 HIP TOTAL ROBOT ARTHROPLASTY Pocos DO, Justice Kam 01/19/23 Unknown Hip L FDA Start: 01-19-2023 HIP TOTAL ROBOT ARTHROPLASTY Pocos DO, Justice Kam 01/19/23 Unknown Hip L FDA Start: 01-19-2023 HIP TOTAL ROBOT ARTHROPLASTY Pocos DO, Justice Kam 01/19/23 Unknown Hip L FDA Start: 01-19-2023 HIP TOTAL ROBOT ARTHROPLASTY Pocos DO, Justice Kam 01/19/23 Unknown Hip L FDA Start: 01-19-2023 HIP TOTAL ROBOT ARTHROPLASTY Pocos DO, Justice Kam 01/19/23 Unknown Hip L FDA Start: 01-19-2023 HIP TOTAL ROBOT ARTHROPLASTY Pocos DO, Justice Kam 01/19/23 Unknown Hip L FDA Start: 01-19-2023 HIP TOTAL ROBOT ARTHROPLASTY Pocos DO, Justice Kam 01/19/23 Unknown Hip L FDA Start: 01-19-2023 HIP TOTAL ROBOT ARTHROPLASTY Pocos DO, Justice Kam 01/19/23 Unknown Hip L FDA Start: 01-19-2023 Functional Status Date Assessment Result Facility 05-09-2024 Functional Status N/A [facility] Clinical Notes 09-29-2021 to 05-09-2024 Note Date & Type Note Facility 05-09-2024 Note General Surgery Offi ce/Clinic Note Chief Complaint consultation for anemia HPI Staff 68 year old male presents on consultation from Dr. Garcia for anemia. Labs completed 04/04 with H/H 13.5 and 39.5. Denies abdominal or rectal pain. No rectal bleeding or change in bowel habits. Denies nausea or vomiting. No explained weight loss. Never had colonoscopy in the past. No known family history of colon cancer. History of Present Illness 68 yo male with h/o htn, atrial fibrillation, gout; referred for mild anemia/colorectal screening; denies change in bms or blood in stools, no melena; no abd complaints; no abd operations or previous colonoscopy; on baby asa and Diclofenac daily, no tobacco use; no fmhx of GI malignancy or IBD. Review of Systems PHQ Score Initial Depression Screen Score: 0 SCORE ROS - Provider Constitutional: no fever, no sweats, no weight loss. Eyes: no glasses, no blurred vision, no visual loss. ENMT: no dentures, no hoarseness, no swallowing difficulties, no hearing loss, no ear infection(s), no nose bleeds. Cardiovascular: normal blood pressure, no chest pain, regular heartbeat, no heart murmur. Respiratory: no shortness of breath, no cough, no asthma, no wheezing. Gastrointestinal: no nausea, no vomiting, no diarrhea, no constipation, no blood in stool, no change in bowel habits, no abdominal pain, no hepatitis. Genitourinary: no kidney stones, no urine infection, no dysuria. Musculoskeletal: no pain, no weakness. Skin: no changing moles, no rash, no skin lumps. Neurologic: no seizures, no epilepsy, no headache. Psychiatric: no emotional or psychiatric problem. Heme/Lymph: no bleeding problems, no anemia, no blood clots, no transfusions. Allergy/Immunologic: no swollen lymph nodes/glands, no IV drug abuse. Other: Additional ROS info: Except as noted in the above Review of Systems and in the History of Present Illness, all other systems have been reviewed and are negative or noncontributory. Physical Exam Vitals & Measurements HR: 72(Peripheral) RR: 16 BP: 128/82 HT: 73 in HT: 185.4 cm WT: 112 kg WT: 246.4 lb BMI: 32.58 HEENT: normal conjunctiva, sclera clear, no scleral icterus, EOM intact, PERRLA, oral mucosa moist without lesions. Neck: trachea midline, no mass, symmetric, no thyromegaly or nodules, no adenopathy Respiratory: lungs CTA, respirations non labored. Cardiovascular: regular rate and rhythm, no murmur, no pedal edema or varicosities. Gastrointestinal: obese, soft, non distended, no tenderness, no masses, no palpable hernias, diastasis recti no, no hepatosplenomegaly; normal bs Lymphatic: no cervical adenopathy, no supraclavicular adenopathy. Musculoskeletal: normal gait, digits and nails without infection, nodes, cyanosis, clubbing. Skin: no rashes, no lesions, no ulcers, no subcutaneous nodules, induration. Psychiatric/Neuro: oriented to time, place, person, judgement normal, affect appropriate for age, insight intact, no focal deficits. Tests: labs reviewed, review of old records completed , Discussed surgical options, risks, and possible complications with patient. Assessment/Plan 1. Anemia (D64.9: Anemia, unspecified) plan EGD and colonoscopy under anesthesia for further evaluation, informed consent obtained. Follow-up No qualifying data available Problem List/Past Medical History Ongoing Anemia Atrial fibrillation BMI 32.0-32.9,adult Class 3 obesity Erectile dysfunction Gout Hypertension Historical No qualifying data Procedure/Surgical History Hip arthroplasty (01/19/2023), History of tonsillectomy (1962), Achilles tendon repair. Medications allopurinol 100 mg Tab, 100 mg= 1 tab(s), Oral, Daily, PRN, Not taking aspirin 81 mg oral capsule, 81 mg= 1 cap(s), Oral, Daily atenolol 50 mg Tab, 50 mg= 1 tab(s), Oral, Daily diclofenac sodium 75 mg Oral EC Tab, 75 mg= 1 tab(s), Oral, BID Fish Oil 1000 mg oral capsule, 2000 mg= 2 cap(s), Oral, BID flecainide 100 mg Tab, 100 mg= 1 tab(s), Oral, q12hr hydrochlorothiazide-lisinopril 12.5 mg-20 mg Tab, 1 tab(s), Oral, Daily Multi Vitamins oral tablet, 1 tab(s), Oral, Daily sildenafil 100 mg Tab, 100 mg= 1 tab(s), Oral, q72hr, PRN Allergies sulfa drugs (eyes swell) Social History Alcohol Current, Beer, Daily, 12/29/2022 Substance Abuse - Denies Substance Abuse, 12/29/2022 Tobacco - Denies Tobacco Use, 12/29/2022 Never (less than 100 in lifetime) Tobacco Use:. Never Smokeless Tobacco Use:., 05/09/2024 Family History Hypertension: Mother. Stroke: Father. [facility] Comment on above: Result Comment: Elec tronically Signed By: LAURA GRIJALVA, Petros Suarez\Date and Time Signed: 05/09/24 13:53 EDT 01-19-2023 Evaluation + Plan note Extrac bart from: Title:CSB post op Author:Dong Worley MD Date:01/19/23 Plan Transfer/Discharge: Transfer/Discharge Discharge when meets criteria ( To home ). Extracted from: Title:CSB GA Author:Dong Worley MD Date:01/19/23 Plan [place] [employer]esthesi[employer] (ASA) physical status classification: Class II. Anesthetic Preoperative Plan: Anesthesia. Regional Spinal. [facility]03-21-2023 Hospital Discharge instructions Patient Education 01/19/2023 10:46:31 How to Use an Incentive Spirometer How To Use an Incentive Spirometer An incentive spirometer is a tool that measures how well you are filling your lungs with each breath. Learning to take long, deep breaths using this tool can help you keep your lungs clear and active. This may help to reverse or lessen your chance of developing breathing (pulmonary) problems, especially infection. You may be asked to use a spirometer: After a surgery. If you have a lung problem or a history of smoking. After a long period of time when you have been unable to move or be active. If the spirometer includes an indicator to show the highest number that you have reached, your health care provider or respiratory therapist will help you set a goal. Keep a list (log) of your progress as told by your health care provider. What are the risks? Breathing too quickly may cause dizziness or cause you to pass out. Take your time so you do not get dizzy or light-headed. If you are in pain, you may need to take pain medicine before doing incentive spirometry. It is harder to take a deep breath if you are having pain. How to use your incentive spirometer 1.Sit up on the edge of your bed or on a chair. 2.Hold the incentive spirometer so that it is in an upright position. 3.Before you use the spirometer, breathe out normally. 4.Place the mouthpiece in your mouth. Make sure your lips are closed tightly around it. 5.Breathe in slowly and as deeply as you can through your mouth, causing the piston or the ball to rise toward the top of the chamber. 6.Hold your breath for 3 5 seconds, or for as long as possible. If the spirometer includes a golf coach indicator, use this to guide you in breathing. Slow down your breathing if the indicator goes above the marked areas. 7.Remove the mouthpiece from your mouth and breathe out normally. The piston or ball will return tothe bottom of the chamber. 8.Rest for a few seconds, then repeat the steps 10 or more times. Take your time and take a few normal breaths between deep breaths so that you do not get dizzy or light-headed. Do this every 1 2 hours when you are awake. 9.If the spirometer includes a goal marker to show the highest number you have reached (best effort), use this as a goal to work toward during each repetition. 10.After each set of 10 deep breaths, cough a few times. This will help to make sure that your lungs are clear. If you have an incision on your chest or abdomen from surgery, place a pillow or a rolled-up towel firmly against the incision when you cough. This can help to reduce pain from coughing. General tips When you become able to get out of bed, walk around often and continue to cough to help clear your lungs. Keep using the incentive spirometer until your health care provider says it is okay to stop using it. If you have been in the hospital, you may be told to keep using the spirometer at home. Contact a health care provider if: You are having difficulty using the spirometer. You have trouble using the spirometer as often as instructed. Your pain medicine is not giving enough relief for you to use the spirometer as told. You have a fever. You develop shortness of breath. Get help right away if: You develop a cough with bloody mucus from the lungs (bloody sputum). You have fluid or blood coming from an incision site after you cough. Summary An incentive spirometer is a tool that can help you learn to take long, deep breaths to keep your lungs clear and active. You may be asked to use a spirometer after a surgery, if you have a lung problem or a history of smoking, or if you have been inactive for a long period of time. Use your incentive spirometer as instructed every 1 2 hours while you are awake. If you have an incision on your chest or abdomen, place a pillow or a rolled-up towel firmly against your incision when you cough. This will help to reduce pain. This information is not intended to replace advice given to you by your health care provider. Make sure you discuss any questions you have with your health care provider. Document Released: 02/28/2008 Document Revised: 11/10/2018 Document Reviewed: 08/31/2018 Elsevier Patient Education 2020 [employer] 01/19/2023 10:46:31 Post Op Patient Instructions - FT (CUSTOM) 01/12/2023 07:24:00 Pocos - Hip Replacement Arthroplasty, Revised 12/23/11. (Custom) [place], [place] [facility] DISCHARGE INSTRUCTIONS HIP REPLACEMENT ARTHROPLASTY INCISION CARE: Continue the daily dressing care to the hip as instructed in the hospital for 7 days postoperatively. The dressing will then be changed and worn an additional 7 days. You may then discontinue the dressing changes. The dressing over the upper pelvis area may be reoved postoperative day #3 and left open to the air. Please notify the office if any increase in redness, tenderness, drainage, fever, orwound separation is noted. DISLOCATION PRECAUTIONS: Continue to use the abduction pillow between the knees at all times, both while in bed and up in chair. This abduction pillow should be removed only while walking and performing physical therapy exercises; otherwise, to be used while sitting and while in bed. This will maintained for six weeks postoperatively. At that time you may begin using a regular bed pillow between your knees at night. You should continue to avoid crossing the knees or crossing the legs for six months postoperatively. Sitting in a chair should always be such that the knees are kept below the level of the hips to avoid increased flexion of the hip, possibly causing dislocation. MEDICATIONS: You may resume your home medications at the time of discharge. Cefadroxil (Duricef) as ordered for 4 doses. Take 1 Ecotrin aspirin (81mg) twice daily with food for the next 4 weeks. Start with evening dose day of surgery. [facility] Discharge Instructions for Hip Replace.Page 2 Medications Cont... Pain medication has been prescribed as well. You may continue to use the pain medication every fourhours as needed. Any narcotic pain medication can cause side effects including stomach upset, constipation, or light-headedness. You should not drive or operate machinery, or use alcohol while using the narcotic pain medication. You should not use other pain medications with this prescription pain medication unless further directed by your physician. PHYSICAL THERAPY DISLOCATION PRECAUTIONS: Continue the weightbearing as tolerated. Continue the range of motion and strengthening exercises initiated in Physical Therapy in the hospital. Again, do not cross legs, internally rotate the legs, or flex the hip above 90 degrees for six months postoperatively. Continue weight bearing, as ordered, to the operated hip for four to six weeks as directed in Physical Therapy. This will be with the use of a walker or crutches. After four or six weeks you may thenprogress to the use of one crutch, or a cane. A quad-cane is preferred as this is more stable. Physical therapy as begun in the hospital will continue at home, possible with the railways assistant of Home Health Physical Therapy or in the hospital as an outpatient. When you have become independent withthe physical therapy program, this will then be discontinued as a supervised program and you will be instructed to continue the physical therapy exercises at home. DRIVING: Do NOT Drive FOLLOW-UP OFFICE VISIT: 4 weeks Postop Justice Cordon, DO [facility] [address] [place] [address] [id number] Reviewed: 02-06 Revised: 11/12 Follow Up Care 12/04/2022 11:50:21 With:Justice Cordon Address: [address] [place] [address]- Business (1) When:02/17/2023 15:15:00 Comments:Keep scheduled appointment [facility]01-28-2023 Evaluation note* Encounter Date Diagnosis Assessment Notes Treatment Notes Treatment Clinical Notes Nov, Left hip pain (ICD-10 - M25.552) Referral placed due to findings of Xrays. Take medication as directed. [facility] Other 10-18-2022 Evaluation note* Encounter Date Diagnosis Assessment Notes Treatment Notes Treatment Clinical Notes Aug, Essential hypertension (ICD-10 - I10) Continue current medications Aug, Wellness examination (ICD-10 - Z00.00) Today during your appointment we discussed your health history and family history of chronic health problems. We also discussed screenings that should be done to rule out chronic health problems. These screenings can help prevent many health problems from becoming major as early intervention is the best treatment for all conditions. We will be checking your cholesterol, kidney function, blood sugar as well as special tests for prostrate and colon cancer. Based on the findings, we will come up with a plan together of when the best time for your next screening should be. Aug, Atrial fibrillation, unspecified type (ICD-10 - I48.91) Continue current medications Aug, Erectile disorder du e to medical condition in male patient (ICD-10 - N52.1) Continue current medicaion Aug, Primary osteoarthritis involving multiple joints (ICD-10 - M15.9) Continue current medication [facility] [employer] Other 11-29-2021 Evaluation note* Encounter Date Diagnosis Assessment Notes Treatment Notes Treatment Clinical Notes Sep, Wellness examination (ICD-10 - Z00.00) Today during your appointment we discussed your health history and family history of chronic health problems. We also discussed screenings that should be done to rule out chronic health problems. These screenings can help prevent many health problems from becoming major as early intervention is the best treatment for all conditions. We will be checking your cholesterol, kidney function, blood sugar. Based on the findings, we will come up with a plan together of when the best time for your next screening should be. Sep, Essential hypertension (ICD-10 - I10) Sep, Atrial fibrillation, unspecified type (ICD-10 - I48.91) [facility] [employer] Other Evaluation + Plan note Future Appointments Appointment Date:01/19/2023 09:00:00 AM Scheduled Provider: Location:[facility] App[facility] noteNo InformationN[facility] [employer] Other Evaluation noteNo assessment information available [facility] Work Phone: Evaluation note* Diagnosis Essential hypertension, benign- Primary [facility] - Reported* Type Description Date Medical History A-fib Medical History Hypertension Surgical History tonsillectomy and adenoidectomy Hospitalization History fracture repair as a [employer] [facility] Other History general Narrative - Reported* Type Description Date Medical History A-fib Medical History Hypertension Medical History Osteoarthritis Medical History erectile dysfunction Surgical History tonsillectomy and adenoidectomy Hospitalization History fracture repair as a [employer] [facility] Other Hospital course Narrative No data available for this section [facility] No data available for this section [facility]InstructionsNot on filedocumented in this encounter [facility] No data available for this section [facility] Advance Directives No Advanced Directives Records Found Advance Directive Response Recorded Date/ Time Advance Directives No January 28, 2 020 6:43am Summary Purpose Family History No Family History Records FoundNo Family History Records FoundNo Family History Records Found No data available for this section No Family History Records Found Additional Source Comments REASON FOR VISIT (unrecogniz ed section and content) Reason Comments Med Refill Care Teams (unrecognized sec tion and content) Team Status: Inactive Member Role Status Dates PHYSICIAN NO FAMILY Primary Care Provider Active EMERSON Barriga Attending Provider Active Team Status: Active Member Role Status Dates PHYSICIAN NO FAMILY Primary Care Provider Active [employer] External Relationship Specialty Start Date End Date Karl Garcia MD [address] [place] [address] PCP - General Family Medicine 01/06/23 Goals (unrecognized section and content) Goals may be documented in a n alternate section (unrecognized sect ion and content) No Status Records FoundNo Status Records FoundNo Status Records FoundNo Status Records Found INFORMATION SOURCE (unrecogn ized section and content) DATE CREATED AUTHOR 12/07/2022 [facility] DATE CREATED AUTHOR AUTHOR'S ORGANIZ ATION 03/15/2023 [facility] DATE CREATED AUTHOR AUTHOR'S ORGANIZ ATION 01/13/2024 [facility] DATE CREATED AUTHOR AUTHOR'S ORGANIZ ATION 06/13/2024 [facility] FOR RECORDS PERTAINING TO PATIENTS WHO ARE OR HAVE BEEN ENROLLED IN A CHEMICAL DEPENDENCY/SUBSTANCEABUSE PROGRAM, SOME INFORMATION MAY BE OMITTED. This clinical summary was aggregated from multiple sources. Caution should be exercised in using it in the provision of clinical care. This summary normalizes information from multiple sources, and as a consequence, information in this document may materially change the coding, format and clinical context of patient data. In addition, data may be omitted in some cases. CLINICAL DECISIONS SHOULD BE BASED ON THE PRIMARY CLINICAL RECORDS. [employer] provides no warranty or guarantee of the accuracy or completeness of information in this document.
[2024-08-07 11:25] LABS: Magnesium 2.1 mg/dL (1.8-2.4)
== END 2024-08-07 10:54 | disposition home or self-care (01) ==
LOC: LAB 10:54
PROVIDERS: PCP Family Medicine; Visit Provider Family Medicine
DX: E83.42 Hypomagnesemia (principal)
CPT/HCPCS: 36415; 83735

== ENCOUNTER 2024-12-28 15:34 | Outpatient (OUT) | payer OTHER, SELFPAY ==
--- OUTSIDE RECORDS SUMMARY | 2024-12-28 15:49 | XMS_ITS | CCD ---
Author Organization [facility] Care Team Providers Care Sales Agent [employer] Name Role Phone Agnes Villalobos Unavailable NO FAMILY, PHYSICIAN Primary Care Provider Unava ilable EMERSON Villalobos Attending Provider Agnes Villalobos Admitting Unavailable Agnes Villalobos Attending Unavailable NO FAMILY, PHYSICIAN Primary Care Unavailable NONE, XXXX Primary Care Physician Unavailab mary TY ., ANAHI Attending Unavailable JACINTA ., ROSA GENAO Consulting Unavailmagda TY .ANAHI Admitting Unavailable HOY ., DR BARAJAS Consulting Unavailable HOY ., DR BARAJAS Attending Unavailable HOY ., DR BARAJAS Admitting Unavailable HOY ., DR BARAJAS Primary Care Unavailable HOY ., DR BARAJAS Consulting Unavailable HOY ., DR BARAJAS Attending Unavailable HOY ., DR BARAJAS Admitting Unavailable YAJAIRA ., DR BARAJAS Primary Care Unavailable JUSTICE CORDON Referring Unavailable Karl Garcia Primary Care Physician Petros SANCHEZ Attending Unavailable Karl Garcia Referring Unavailable ROBBIE SMITH Attending Unavailable KARL GARCIA Referring Unavailable KARL GARCIA Primary Care Unavailable KARL GARCIA Primary Care Unavailable Robbie Smith Attending Unavailable Robbie Smith Admitting Unavailable Karl Garcia MD Primary Care Provider [phone] Karl Garcia MD Primary Care Provider [phone] Allergies Allergy Classification Reported Allergen(s) Allergy Type Date of Onset Reaction(s) Facility (8 sources) Sulfacetamide / Sulfur Drug Allergy Unknown [employer] Other (4 sources) Sulfonamides (Antibiotic); Translations: [sulfa drugs] Drug allergy eyes [facility] (1 source) Sulfonamides (Antibiotic) Drug allergy (disorder) [facility] Repository (9 sources) Sulfonamides (Antibiotic); Translations: [SULFA (SULFONAMIDE ANTIBIOTICS)] Propensity to adverse reactions to drug (disorder) 8 [facility] Repository Medications Current Medications Medication Drug Class(es) Dates [...] aspirin 81 mg delayed release oral tablet (13 sources) Platelet Aggregation Inhibitor, Nonsteroidal Anti-inflammatory Drug Start: 01-19-2023 take 1 tablet by mouth twice daily aspirin 81 mg Oral EC Tab 81 mg = 1 tab(s), Oral, BID, # 60 tab(s), Refills(s) 0, Pharm[facility]: [id number], 190, cm, 12/29/22 13:55:00 EST, Height/Length Dosing, [...] 12/01/2017 Active atenolol 50 mg oral tablet (20 sources) beta-Adrenergic Prabhjot Start: 09-14-2024 take 1 tablet by mouth in the morning atenoloL (TENORMIN) 50 mg tablet Take 1 tablet (50 mg total) by mouth in the morning. 90 tablet 3 09/14/2024 Active Start: 12-29-2022 End: 09-14-2024 take 1 tablet by mouth in the morning atenoloL (TENORMIN) 50 mg tablet Take 1 tablet (50 mg total) by mouth in the morning. 90 tablet 3 09/14/2024 Active cefadroxil 500 mg oral capsule (1 source) Cephalosporin Antibacterial Start: 01-19-2023 End: 01-21-2023 take 1 capsule by mouth every twelve hours cefadroxil 500 mg Cap 500 mg = 1 cap(s), Oral, q12hr, X 2 day(s), # 4 cap(s), Refills(s) 0, Pharmacy: [facility] #[id number], 190, cm, 12/29/22 13:55:00 EST, Height/Length Dosing, [...] Dec, Active Diclofenac Activ e docosahexaenoic acid/epa (FI SH OIL ORAL) (8 sources) docosahexaenoic acid/epa (FISH OIL ORAL) Take by mouth daily. Active docosahexaenoic acid/epa (FISH OIL ORAL) Take by mouth daily. 0 Active docusate sodium 100 mg oral capsule (2 sources) Start: 01-19-2023 take 1 capsule by mo uth twice daily as needed for constipation Colace 100 mg Cap 100 mg = 1 cap(s), Oral, BID, PRN for constipation, # 40 cap(s), Refills(s) 0, Pharmacy: [facility] #[id number], 190, cm, 12/29/22 13:55:00 EST, Height/Length Dosing, 112.4, kg, 12/29/22 13:55:00 EST, Weight Dosing Start Date: 01/19/23 Status: Ordered Fish Oils (3 sources) Start: 05-09-2024 take 2 capsules by mouth twice daily Fish Oil 1000 mg oral capsule 2,000 mg = 2 cap(s), Oral, BID, Refills(s) 0 Start Date: 05/09/24 Status: Ordered Start: 12-29-2022 take 1 capsule by mo [facility] once daily Fish Oil 1000 mg oral capsule 1,000 mg = 1 cap(s), Oral, Daily, Prophylaxis Start Date: 12/29/22 Status: Ordered flecainide acetate 100 mg oral tablet (20 sources) Antiarrhythmic Start: 08-17-2024 take 1 tablet by mouth in the morning, then take 1 tablet by mouth at bedtime flecainide (TAMBOCOR) 100 mg tablet Indications: Paroxysmal atrial fibrillation (CMS-HCC) Take 1 tablet (100 mg total) by mouth in the morning and 1 tablet (100 mg total) before bedtime. 180 tablet 3 08/17/2024 Active Start: 06-15-2024 End: 08-17-2024 take 1 tablet by mouth in the morning, then take 1 tablet by mouth at bedtime flecainide (TAMBOCOR) 100 mg tablet Indications: Paroxysmal atrial fibrillation (CMS-HCC) Take 1 tablet (100 mg total) by mouth in the morning and 1 tablet (100 mg total) before bedtime. 180 tablet 3 08/17/2024 Active Start: 12-29-2022 take 1 tablet by jey th every twelve hours flecainide 100 mg Tab 100 mg = 1 tab(s), Oral, q12hr, Refills(s) 0, Other (see comment) Start Date: 12/29/22 Status: Ordered Start: 11-03-2022 take 1 tablet by jey th twice daily flecainide (TAMBOCOR) 100 mg tablet Indications: Paroxysmal atrial fibrillation (CMS-HCC) TAKE 1 TABLET(100 MG) BY MOUTH TWICE DAILY 60 tablet 11/03/2022 Active Flecainide Aceta te Active [id number] 82 ORAL (8 sources) GLUCOSAMINE-COND ROITIN-KEAT008 ORAL Take by mouth daily. Active GLUCOSAMINE-COND ROITIN-YJPT939 ORAL Take by mouth daily. 0 Active hydrALAZINE hydrochloride 25 mg oral tablet (11 sources) Arteriolar Vasodilator Start: 12-06-2024 take 1 tablet by mouth once daily at bedtime hydrALAZINE (APRESOLINE) 25 mg tablet Indications: Essential hypertension, benign TAKE 1 TABLET BY MOUTH EVERY MORNING AND EVERY NIGHT AT BEDTIME 180 tablet 2 12/06/2024 Active Start: 03-10-2023 End: 12-06-2024 take 1 tablet by mouth once daily at bedtime hydrALAZINE (APRESOLINE) 25 mg tablet Indications: Essential hypertension, benign TAKE 1 TABLET BY MOUTH EVERY MORNING AND EVERY NIGHT AT BEDTIME 180 tablet 2 02/15/2024 Active hydroCHLOROthiazide 12.5 mg / lisinopril 20 mg oral tablet (17 sources) Thiazide Diuretic, Angiotensin Converting Enzyme Inhibitor Start: 08-17-2024 take 2 tablets by mouth once in the morning lisinopril-hydroCHLOROthiazide (PRINZIDE,ZESTORETIC) 20-12.5 mg per tablet Take 2 tablets by mouth in the morning. 180 tablet 3 08/17/2024 Active Start: 03-20-2024 End: 08-17-2024 take 2 tablets by mouth once in the morning lisinopril-hydroCHLOROthiazide (PRINZIDE,ZESTORETIC) 20-12.5 mg per tablet Take 2 tablets by mouth in the morning. 180 tablet 3 08/17/2024 Active Start: 12-17-2023 take 2 tablets by mouth once in the morning lisinopril-hydroCHLOROthiazide (PRINZIDE,ZESTORETIC) 20-12.5 mg per tablet TAKE 2 TABLETS BY MOUTH IN THE MORNING 180 tablet 12/17/2023 Active Start: 03-03-2023 take 2 tablets by mouth once in [...] 4 mg oral tablet (1 source) Corticosteroid Start : 11-28 methylPREDNISolone 4 MG as directed Orally Once a day for 6 days Nov, Active Multi Vitamins oral tablet (1 source) Start : 05-09 take 1 tablet by mouth once daily Multi Vitamins oral tablet 1 tab(s), Oral, Daily, Refill(s) 0 Start Date: 05/09/24 Status: Ordered multivitamin capsule (8 sources) take 1 capsule by mouth in the morning multivitamin capsule Take 1 capsule by mouth in the morning. Active take 1 capsule by mouth in the m orning multivitamin capsule Take 1 capsule by mouth in the morning. 0 Active oxyCODONE hydrochloride 5 mg oral tablet (2 sources) Opioid Agonist Start: 01-19-2023 oxyCODONE 5 mg Tab 5 mg = 1 tab(s), Oral, As Directed, 1-2 po q4-6 hrs prn pain Dx: M16.12, Z96.642 Duration: 7days, # 40 tab(s), Refills(s) 0, Pharmacy: [facility] #[id number], 190, cm, 12/29/22 13:55:00 EST, Height/Length Dosing, 112.4, kg, 12/29/22 13:55:00... Start Date: 01/19/23 Status: Ordered sildenafil 100 mg oral tablet (20 sources) Phosphodiesterase 5 Inhibitor Start: 08-17-2024 take 1 tablet by mouth once daily as needed sildenafiL (VIAGRA) 100 mg tablet Take 1 tablet (100 mg total) by mouth daily as needed for erectile dysfunction. 20 tablet 5 08/17/2024 Active Start: 04-11-2024 sildenafil 100 mg Tab 100 mg = [...] Active Sildenafil Citra te Active Turmeric extract (8 sources) TURMERIC ORAL Ta ke by mouth daily. Active TURMERIC ORAL Ta ke by mouth daily. 0 Active Vitamin B Complex (8 sources) vitamin B comple x (B COMPLEX ORAL) Take by mouth daily. Active vitamin B comple x (B COMPLEX ORAL) [...] bronchitis; Translations: [Acute bronchitis] Episodic Cardiac dysrhythmias (20 sources) Atrial fibrillation; Translations: [Unspecified atrial fibrillation] Onset: 11-29-2017 Resolved: 09-29-2021 Chronic Conduction disorders (8 sources) First degree atrioventricular block; Translations: [Atrioventricular block, first degree] Onset: 11-07-2020 11-07-2020 Chronic Deficiency and other anemia (2 sources) Anemia; Translations: [Anemia, unspecified] Onset: 05-09-2024 Episodic Essential hypertension (20 sources) Essential hypertension; Translations: [Essential (primary) hypertension] Onset: 11-29-2017 Resolved: 09-29-2021 Chronic Gout and other crystal arthropathies (1 source) Gout 04-11-2024 Chronic Heart valve disorders (8 sources) Mitral valve regurgitation; Translations: [Nonrheumatic mitral (valve) insufficiency] Onset: 10-16-2019 10-16-2019 Chronic Osteoarthritis (6 sources) Degenerative joint disease involving multiple joints; Translations: [Polyosteoarthritis, unspecified] Chronic Other aftercare (1 source) ocean transportation intermediary (current) use of aspirin; Translations: [SHELTER CURRENT USE OF ASPIRIN] Onset: 01-04-2023 Episodic Other aftercare (1 source) Other long winder tender (current) drug therapy; Translations: [OTH JUNIOR BUSINESS ANALYST CURRENT DRUG THERAPY] Onset: 01-04-2023 Episodic Other [...] conditions (not mental disorders or infectious disease) (8 sources) Electrocardiogram abnormal; Translations: [Abnormal electrocardiogram [ECG] [EKG]] 11-29-2017 Episodic Unclassified (1 source) Pain in left hip; Translations: [Pain in left hip] Onset: 11-28-2022 Urinary tract infections (4 sources) Urinary tract infection, site not specified; Translations: [UTI SITE NOT SPECIFIED] Onset: 02-25-2023 Episodic Past or Other Problems Problem Classification Problem Date Documented Da te Episodic/Chronic Cardiac dysrhythmias (8 sources) Palpitations; Translations: [Palpitations] Onset: 12-04-2020 12-04-2020 Episodic Other lower respiratory disease (8 sources) Dyspnea; Translations: [Shortness of breath] Onset: 12-04-2020 12-04-2020 Episodic Results Test Name Value Interpretation Reference Range Facility Coding Summaryon 10-09-2024 Coding Summary HTMLBase 64 WlbvalbzDIk3zEe+PGhl YWQ+DY9JYCIoK11gyIYs aN1nJ4IVGZpYYcjzRZND KZaENwPmlcZqGA0rsDCk ZXJu IC8+DE3bQKXmRvkfhLHj u3Y1vIS5Z97bau2hGYcd tDH7TVTkKqBglbsza3wq rSx7VXhzMmovUmHf FOCtdO54MYM7pL09Ar63 zSIuuMBek5mtpSk5GdEv FSKnUTS4rIxnCOpel5Hx YSFqB38znBFza5A7 IGNvbGxhcHNlOyBlbXB0 lV6mRUtyikigk4vmfknm Ydd2cc60mLNdf8Q7rIK5 F4ZegzH9PVFikZVq JzbcuDESsT6qwcocj0mt cfznGgMhXSEhWBb4ZPi1 MMBooInvZiNsLN38BMV8 MANzboSyD5LgBTSc eGdbIlL6o4W4Sf8RB6DB DeewR6PPGBRCITcsnJH+ MR35ao00Z3NbDgqzEbr8 SJVtTQD1nEB7bY1u LIPuEXvtc1C8iUW7F1Dd kiLvsr8lp0fcXAAdJGwi M69iaXNqr3V3CIJjdHB9 YEHyrFvwUcVncU16 Oyc+ILDueLcuh1BxHrmw y9efg2smsZn3MzcwDLXn luOelZkwNIY2x8MkEl5q KHWwnIL8iLB3eB7h UnIoGmZ7HWcpB743QyMt lVIyDtqzB40jK0KebHU+ VKFuObb4OSGoaXasPT3a S3IxLNNbnorfpNWv yRxfXL9hWISqvixkYJHn iK7fOTKuK0w1HhVjPxA0 OMowM7NvXGDkqmqfTv05 fI3tYxRtYdK4GJpm Q9SuwcJ7NIBajSHmKTkj OQA1T36ib4R4HYGxYHWg ZLM6sTY7oW7uvLwazwui bGVmdDsgdmVydGlj SLqdBDbiA024AYVvjQhy PkNvZGluZyBEYXRlOiAg MTIvMDkvMjAyNDwvdGQ+ HEZgURI1hFyqWBGm sMDiQAgcCa3ihJqpmPwr DW7pSUJpknniBHRuyB8i ZYAdpKHpeAkaKG9bESAx etfkm410IfWxBUI1 OQExbFIuS8CltE9dGhMz JSYbPAPiP8TthTYsZTgv D059MPoiRpK8FEDrakEs I2LkCNVngNtlLuR3 c7H2Js4Zb0VzkfqhP6Lt nAKrPeKfUxtiHEh8O6Bg PjwvdHI+DS87DCAbFO86 WZb9DXX9xXapCHzn OPZlE2JrtR8lMaHuCTWb ZGRkOyc+PHRhYmxlIHdp ZHRoPScxMDAlJyBzdHls HK7rCj9rOUHcEMIh mVuddWMoGqLjx5owIAIm PFmdBS0kgZvwZ8WdtAY5 LJWph1z4Sj04Y63fA5Py dXA+NSVfcOD4vIU4 xV3uEkYlQyJ2WVqrR379 BjLbyGExEzluf9ian8zy dBm3LdC3ECTvalCiuDim JGM4z2NaTu08F19x IHdpZHRoPSIxNSUiIHZh uAcjzf7seM5cXs0+PGNv mTA8dRH0vD6uGgInYjW5 CXxyI126ViDrbZTu Xptwg7hep5icsXn4QwVv MUGwgzOmnXebEHX4k9Yy Ep58U5MfyWdbp1NpLlt0 dt85vMXvi4P7iGI2 W6OqUIHpbcknoCLwxBiz RY9pGGVvshcfUQLqyA6e DTAeB1p9HfPtPbQ3DKvo G5UppzE1NWYpzPZc JVZeiQFCmJ7avzrel5uw ewhyNuKiGMQrLZv8XJr6 ALJciHnhCbNgHBW1EsC7 MSJ6mYEqgI5caKlf pquinF9iGnd+UEC4eTRn pRTUSQ3lUynqiPV+PHRk YYD2bRjeTBexXUSfoF9m XLNrF3x2SzAhNxR2 SKueS5QvuwE0NBLlsBHk TNKtuWFNhX0cigvue7pr nxkgSzSnRVEcJPw5MPj3 LWFsaWduOiBsZWZ0 OtK9DKM4sPFfkT1frEgr gbxtnM2pRdk+QmlydGgg GXR7JUq1U4RbJpl9ZTXz dWbgPQ5wiRXkYNhw Nx0dmJmymPreOV0tSRTn pohxg727WgGpi9ynHZSz yZJaDJcnOCB4Z24ch9A3 KHRsOZRzWQC4dHC6 dG1mcAzvtfnwnXYomTds rgXjuNjnGVjwJElzQ648 FVUxnCzmSwZcDMt9U2Jq Nyv5QRUffGjdBZ4o mUOoAEbcMq0heObqrRoq JD3dPRPlmcnbj329FaMw b6xyLQGnwBHaYGcdDRB0 M66xx6Z4GDMhEVWo UBV3aYI3oR9zlSxvwsoc bGVmdDsgdmVydGljYWwt EJphE158HDIvbNjjNuCd fDh0A3MhApo5CBEw vAzrMB3xyWLsRXrfGx1s pJuvdVrzMT5kOSUcfvpi i512EhDul7yeAHZtlJLg WSguNDK8X71pg4Y7 JMDfIMBwNRZ3wDA5rM8d bGlnbjogbGVmdDsgdmVy eMzlZDiqMIozK783LXOw cDsnPlBhdGllbnQg ZRbaKVv5N2GjQagatWO+ NM72TGRqKJ65vPNheHNi c2lczNi4LbSqESTkWTY5 rCaxEVecj2WcMAZt O48baQCed9S8SUEioQkr eMHjTwPjwHQ0gQ3jXQts gvikx8jcqrugRvhht2dg yn38nC67U34xTCse ZHRoPSIzMCUiIHZhbGln ns6uxL0qUn7+PGNvbCB3 bBV4sV5yVSJkEgA1JCjf L838SeGpdMUeXmhl a7qhe9wcsQf6ZaS7BWNc ofHvtBajGBV0u8LvTb69 G42mVRxyXORpAVRoEDXu NVHlmGxzar2ecG7j Ii8+XHJqqXW6sQN4vV3r ZpHuTpG4HBwmP882EkKu uPZkOvbiP76mK2ZrlJU+ TZMcDrq1CAKsdEao MH5krHViXXktPo5hKWJ0 PrWjVqDvLSfvF3UuLBUp dqklayqpdLS8BXTdANOv oS01Zp6tsKycTHYv iKUCyD0wtsjkz2gljjqj HiRjTAStHEj8ZTz3QUGz nIzyNpJvDRV1ZsF2SNP4 pKVjeZ8yuAdpgmfl oB7hB5WqBXNbobbtRt56 cX5vEnEnOnV7QZreDvu+ UOBADNbLB10kBG7HH8cB HYb5B5UzCpx7YQVa nNuoDT3fkKSxHJljFe6k dKvjvTvcUH3tWXFkpfae ZOOnsI4tMCOnrTIpnDoj ZC2uNSAkqmlri134 TaYrEBO3PLKopYOoL9Lg tI0rEuPyIMAtYWAcX6Dw tFKwTHarJ916VEsrDiC6 KUFbcnMpZ3MsQRXv vGluMfX8a7T0Lk8aQT8a Ld8oCUO8ZG98MU57dAMe y8Z1eLK9U0YmJZIbaznj adugmBO0WNMeCESy vC01uTExFFowCd7wt4R4 c564OYKkLJKdlN42Ht7j cPnhUDBiiFOVfF1cnkrq r7lhmihvKjMpOEFr FXj6ERc2CBTunNgsBcDe YDS7LdE8KIP6nMEgpZ0h gBnvyatalN4fDzy+Njcg WGZoteI7T9IlIpp9 VNAbnUiiGZ8mdFByFMog Cm7tgPjppZggOB0oBOZr hiwvTQGphV3lEHLhuIZd nDxrYO2bSQJwpaxc j854PmJyUHG4VRMrmNWl X4XrlT0kWcZsYVOnDIPc K1KvhIWvHZsiA351MMjw JrE0MBUpvvMjG0De GYNcaSgmChK9n6T5Jf3F TIoEIO76SO78sYKak4D4 eXE5C0DvEIPrlbhjgyap yZH9NUYgXHSmnW74 gOAtUFlzEb4yp6Z3r093 LLYrSVZpgA51Va7hpLyw OEGjyHROuV1ypjalw6dt cjogIzAwMDAwMDt0 JSi3KBLbiFynKxSwVLQ4 KdI4XWO0hYCecV2csXid ijnpqY3yWie+H4L0X0Ca PjwvdHI+BG89QLBw KX26nINjzTFgs6fglUl4 ZfGlYVTqCMU1aGpgFXvy e7WcECUgK70svDLrf7R9 IGNvbGxhcHNlOyBl zIN5tX5sVMbucuqos9jj eqtyBikqb8eqho44hD75 C33xROenLUHvWBMoBQQw HVNmeDodux8boF2u Ii8+FZZkuTA3bPI7kW6h DlVxQaS7THtiM275LwSi uSPeEerzi0akc3enxNb6 IjIwJSIgdmFsaWdu BHM4q7XeWx23K37fANxs ZHRoPSIyMCUiIHZhbGln uf3swR4xKa6+XE5jg6zv ef59tM02gJZ+PHRk CMC9uRcgWGdyYXDduY8k ZPguZuJ2DMWrWrItuU04 pGZtRIrvFl6ukEucdOps RA8lHIOlyiyxx022 XvIpb9agXTAvnFNvIPcq ZZW3K26qd5W6MAZuBAOl OEJ0zHT5lP4bsCsznjao bGVmdDsgdmVydGlj IWqxUZfqC222LTMvnWty TqYmuULkE4gtbiWQHT3p OjwvdGQ+KIFyVQX2cSgn BCrsNTOukE3yNTLh Z5t1KtEcClT8MYraO8Ga ijD4RSZqjZJbDGSguHQI aJ7ucbcsh1skugwmVnYt SAOkIDs0LRj5BOLf sLqpGaBeVLK9JyK6KAB5 kNGpvT7skFrzjtihwJ9b Oyc+RklOOjwvdGQ+PHRk PWS9mBdyUYibMHAa lH2dCZZrE9g3XjSoGcS7 NMkcN9SrarC8FHJrrVKd BJPwuQAZrS9ioyjdt1cq cjogIzAwMDAwMDt0 FVi6ISRkjOabJtLdYXT8 XjJ0GDQ2yKLxlL6npNcp amyugP3mMky+TVJOOjwv dGQ+WMTdOFA8xHfl HOvdJWAtaS2bEILsK5s1 NiBaYeY5AQseR3TbzuW2 MZSepTMnKQStrFYBkZ2o sionn6qkxqqiLiUs RFIpJQg2PZs2TAOdgUyk AyRiOOU8YzS9RXI9eTRo oO5gzSmiewmzyF5wKms+ HTY9JJQ0SK52EP25 F4OqQwcudRFfhQV+PHRh YmxlIHdpZHRoPScxMDAl NbTcuVihEK5nGk7gXAUv LWNvbGxhcHNlOiBj b2x (more content not included)... [facility] Provider Orderson 08-17-2024 Provider Orders [id number] #[id number] [facility] Ambulatory Visit Summaryon 0 05-09-2024 Ambulatory Visit Summary Ambulatory Visit Summary PETROS MEANS :1955 Visit Date:05/09/2024 Ambulatory Visit Instructions Your Diagnosis Anemia Your Care Team Attending Physician - Petros SANCHEZ MD Primary Care Physician - Karl Garcia MD Referring Physician - Karl Garcia MD This [...] for choosing us for your care. [facility] Physician Referralon 024 Physician Referral [id number]# [id number] Normal [facility] CULTURE URINEon 03-14-2023 CULTURE URINE Isolate 1 [...] Trimethoprim/Sulfame thoxazole <=20 S F Normal [facility] Comment on above: Performed By: #### U RCX #### [facility] [address] [place] [address] Dr. Pebbles Ayers UA RANDOM W/MICROSCOPICon BACTERIA LARGE Abnormal NONE SEEN [facility] Comment on above: Performed By: #### U AMIC #### [facility] [address] [address] [address] Pebbles Ayers Bilirubin Ql (U) Negative Normal NEGATIVE [facility] Comment on above: Performed By: #### U AMIC #### [facility] [address] [address] [address] Pebbles Ayers CAST NONE SEEN Normal NONE SEEN [facility] Comment on above: Performed By: #### U AMIC #### [facility] [address] [address] [address] Pebbles Ayers Clarity (U) CLEAR Normal CLEAR [facility] Comment on above: Performed By: #### U AMIC #### [facility] [address] [place] [address] Dr. Pebbles Ayers Color (U) YELLOW Normal YELLOW [facility] Comment on above: Performed By: #### U AMIC #### [facility] [address] [address] [address] Pebbles Ayers Crystals LM Nom (Urine sed) NONE SEEN Normal NONE SEEN [facility] Comment on above: Performed By: #### U AMIC #### [facility] [address] [place] [address] Dr. Pebbles Ayers Epithelial cells LM Ql (Urine sed) FEW Abnormal NONE SEEN /RARE [facility] Comment on above: Performed By: #### U AMIC #### [facility] [address] [place] [address] Dr. Pebbles Ayers Glucose Ql (U) Negative Normal NEGATIVE [facility] Comment on above: Performed By: #### U AMIC #### [facility] [address] [place] [address] Dr. Pebbles Ayers Hemoglobin Ql (U) Negative Normal NEGATIVE [facility] Comment on above: Performed By: #### U AMIC #### [facility] [address] [address] [address] Pebbles Ayers Ketones Ql (U) Negative Normal NEGATIVE [facility] Comment on above: Performed By: #### U AMIC #### [facility] [address] [address] [address] Pebbles Ayers LEUKOCYTES SMALL Abnormal NEGATIVE [facility] Comment on above: Performed By: #### U AMIC #### [facility] [address] [address] [address] Pebbles Ayers MUCOUS NONE SEEN Normal NONE SEEN [facility] Comment on above: Performed By: #### U AMIC #### [facility] [address] [place] [address] Dr. Pebbles Ayers Nitrite Ql (U) Negative Normal NEGATIVE [facility] Comment on above: Performed By: #### U AMIC #### [facility] [address] [place] [address] Dr. Pebbles Ayers pH (U) 5.5 [pH] Normal 5-9 [facility] Comment on above: Performed By: #### U AMIC #### [facility] [address] [address] [address] Pebbles Ayers RBC NONE SEEN Abnormal 0-2 [facility] Comment on above: Performed By: #### U AMIC #### [facility] [address] [place] [address] Dr. Pebbles Ayers SPEC GRAVITY 1.015 Normal 1.005-<=1.025 The [facility] Comment on above: Performed By: #### U AMIC #### [facility] [address] [place] [address] Dr. Pebbles Ayers UA PROTEIN Negative Normal NEGATIVE/ TRACE [facility] Comment on above: Performed By: #### U AMIC #### [facility] [address] [address] [address] Pebbles Ayers Urobilinogen Qn (U) 0.2 {Rainer'U}/dL Normal 0.2 - 1.0 [facility] Comment on above: Performed By: #### U AMIC #### [facility] [address] [place] [address] Dr. Pebbles Ayers WBC 20-50 Abnormal NONE SEEN [facility] Comment on above: Performed By: #### U AMIC #### [facility] [address] [place] [address] Dr. Pebbles Ayers CULTURE URINEon 02-27-2023 CULTURE [...] Trimethoprim/Sulfame thoxazole <=20 S F Normal [facility] Comment on above: Performed By: #### U RCX #### [facility] [address] [place] [address] Dr. Pebbles Ayers UA RANDOM W/MICROSCOPICon BACTERIA SMALL Abnormal NONE SEEN [facility] Comment on above: Performed By: #### U AMIC #### [facility] [address] [place] [address] Dr. Pebbels Ayers Bilirubin Ql (U) Negative Normal NEGATIVE [facility] Comment on above: Performed By: #### U AMIC #### [facility] [address] [place] [address] Dr. Pebbles Ayers CAST NONE SEEN Normal NONE SEEN [facility] Comment on above: Performed By: #### U AMIC #### [facility] [address] [place] [address] Dr. Pebbles Ayers Clarity (U) CLOUDY Abnormal CLEAR [facility] Comment on above: Performed By: #### U AMIC #### [facility] [address] [place] [address] Dr. Pebbles Ayers Color (U) LT. YELLOW Normal YELLOW [facility] Comment on above: Performed By: #### U AMIC #### [facility] [address] [place] [address] Dr. Pebbles Ayers Crystals LM Nom (Urine sed) NONE SEEN Normal NONE SEEN [facility] Comment on above: Performed By: #### U AMIC #### [facility] [address] [address] [address] Pebbles Ayers Epithelial cells LM Ql (Urine sed) NONE SEEN Normal NONE SEEN /RARE [facility] Comment on above: Performed By: #### U AMIC #### [facility] [address] [address] [address] Pebbles Ayers Glucose Ql (U) Negative Normal NEGATIVE [facility] Comment on above: Performed By: #### U AMIC #### [facility] [address] [address] [address] Pebbles Ayers Hemoglobin Ql (U) Negative Normal NEGATIVE [facility] Comment on above: Performed By: #### U AMIC #### [facility] [address] [place] [address] Dr. Pebbles Ayers Ketones Ql (U) Negative Normal NEGATIVE [facility] Comment on above: Performed By: #### U AMIC #### [facility] [address] [place] [address] Dr. Pebbles Ayers LEUKOCYTES LARGE Abnormal NEGATIVE [facility] Comment on above: Performed By: #### U AMIC #### [facility] [address] [address] [address] Pebbles Ayers MUCOUS NONE SEEN Normal NONE SEEN [facility] Comment on above: Performed By: #### U AMIC #### [facility] [address] [address] [address] Pebbles Ayers Nitrite Ql (U) Positive Abnormal NEGATIVE [facility] Comment on above: Performed By: #### U AMIC #### [facility] [address] [address] [address] Pebbles Ayers pH (U) 6.0 [pH] Normal 5-9 [facility] Comment on above: Performed By: #### U AMIC #### [facility] [address] [place] [address] Dr. Pebbles Ayers RBC 0-2 Normal 0-2 [facility] Comment on above: Performed By: #### U AMIC #### [facility] [address] [address] [address] Pebbles Ayers SPEC GRAVITY 1.020 Normal 1.005-<=1.025 [facility] Comment on above: Performed By: #### U AMIC #### [facility] [address] [address] [address] Pebbles Ayers UA PROTEIN TRACE Normal NEGATIVE/ TRACE [facility] Comment on above: Performed By: #### U AMIC #### [facility] [address] [place] [address] Dr. Pebbles Ayers Urobilinogen Qn (U) 0.2 {Rainer'U}/dL Normal 0.2 - 1.0 [facility] Comment on above: Performed By: #### U AMIC #### [facility] [address] [place] [address] Dr. Pebbles Ayers WBC (U) [#/Vol] /uL Abnormal NONE SEEN [facility] Comment on above: Performed By: #### U AMIC #### [facility] [address] [place] [address] Dr. Pebbles Ayers CBC AUTO DIFFon 12-31-2022 BASO # 0.1 103/ul Normal 0.0-0.1 [facility] Comment on above: Performed By: #### C BC #### [facility] [address] [place] [address] Dr. Pebbles Ayers Basophils/100 WBC (Bld) 0.8 % Normal 0.2-2.0 [facility] Comment on above: Performed By: #### C BC #### [facility] [address] [place] [address] Dr. Pebbles Ayers EO # 0.2 103/ul Normal 0.0-0.7 [facility] Comment on above: Performed By: #### C BC #### [facility] [address] [place] [address] Dr. Pebbles Ayers Eosinophils/100 WBC (Bld) 3.3 % Normal 0.9-7.0 [facility] Comment on above: Performed By: #### C BC #### [facility] [address] [place] [address] Dr. Pebbles Ayers Erythrocyte distribution width (RBC) [Ratio] 11.9 % Normal 11.0-15.0 [facility] Comment on above: Performed By: #### C BC #### [facility] [address] [place] [address] Dr. Pebbles Ayers Hematocrit (Bld) [Volume fraction] 40.2 % Critically low 42.0-54.0 [facility] Comment on above: Performed By: #### C BC #### [facility] [address] [place] [address] Dr. Pebbles Ayers Hemoglobin (Bld) [Mass/Vol] 14.2 g/dL Normal 14.0-18.0 [facility] Comment on above: Performed By: #### C BC #### [facility] [address] [place] [address] Dr. Pebbles Ayers IG # 0.06 10e3/ul Critically high 0.00-0.03 [facility] Comment on above: Performed By: #### C BC #### [facility] [address] [place] [address] Dr. Pebbles Ayers IG % 0.8 % Critically high 0.0-0.5 [facility] Comment on above: Performed By: #### C BC #### [facility] [address] [place] [address] Dr. Pebbles Ayers LYMPH # 2.1 103/ul Normal 1.2-3.8 [facility] Comment on above: Performed By: #### C BC #### [facility] [address] [place] [address] Dr. Pebbles Ayers Lymphocytes/100 WBC (Bld) 29.0 % Normal 20.5-60.0 [facility] Comment on above: Performed By: #### C BC #### [facility] [address] [place] [address] Dr. Pebbles Ayers MANUAL DIFF REQ NO Normal [facility] Comment on above: Performed By: #### C BC #### [facility] [address] [address] [address] Pebbles Ayers MCH (RBC) [Entitic mass] 33.1 pg Normal 25.9-34.0 [facility] Comment on above: Performed By: #### C BC #### [facility] [address] [place] [address] Dr. Pebbles Ayers MCHC (RBC) [Mass/Vol] 35.3 g/dL Critically high 29.9-35.2 [facility] Comment on above: Performed By: #### C BC #### [facility] [address] [place] [address] Dr. Pebbles Ayers MCV (RBC) [Entitic vol] 93.7 fL Normal 80.0-94.0 [facility] Comment on above: Performed By: #### C BC #### [facility] [address] [place] [address] Dr. Pebbles Ayers MONO # 0.7 103/ul Normal 0.3-0.8 [facility] Comment on above: Performed By: #### C BC #### [facility] [address] [place] [address] Dr. Pebbles Ayers Monocytes/100 WBC (Bld) 9.4 % Normal 1.7-12.0 [facility] Comment on above: Performed By: #### C BC #### [facility] [address] [place] [address] Dr. Pebbles Ayers NEUT # 4.2 103/ul Normal 1.4-6.5 [facility] Comment on above: Performed By: #### C BC #### [facility] [address] [place] [address] Dr. Pebbles Ayers Neutrophils/100 WBC (Bld) 56.7 % Normal 43.0-75.0 [facility] Comment on above: Performed By: #### C BC #### [facility] [address] [place] [address] Dr. Pebbles Ayers Platelet mean volume (Bld) [Entitic vol] 9.9 fL Normal 9.5-13.5 [facility] Comment on above: Performed By: #### C BC #### [facility] [address] [address] [address] Pebbles Ayers PLT 233 103/ul Normal 150-450 [facility] Comment on above: Performed By: #### C BC #### [facility] [address] [place] [address] Dr. Pebbles Ayers RBC 4.29 106/ul Critically low 4.70-6.10 [facility] Comment on above: Performed By: #### C BC #### [facility] [address] [address] [address] Pebbles Ayers WBC 7.4 103/ul Normal 4.0-11.0 [facility] Comment on above: Performed By: #### C BC #### [facility] [address] [place] [address] Dr. Pebbles Ayers PROF 14(COMP METB)on 023 Albumin [Mass/Vol] 3.9 g/dL Normal 3.4-5.0 [facility] Comment on above: Performed By: #### C LATOYA HSTROPN #### [facility] [address] [place] [address] Dr. Pebbles Ayers Albumin/Globulin [Mass ratio] 1.2 {ratio} Normal [facility] Comment on above: Performed By: #### C LATOYA HSTROPN #### [facility] [address] [place] [address] Dr. Pebbles Ayers ALP [Catalytic activity/Vol] 84 U/L Normal 46-116 [facility] Comment on above: Performed By: #### C LATOYA, HSTROPN #### [facility] [address] [place] [address] Dr. Pebbles Ayers ALT [Catalytic activity/Vol] 40 U/L Normal 16-63 [facility] Comment on above: Performed By: #### C LATOYA, HSTROPN #### [facility] [address] [place] [address] Dr. Pebbles Ayers Anion gap [Moles/Vol] 12.4 mmol/L Normal [facility] Comment on above: Performed By: #### C LATOYA, HSTROPN #### [facility] [address] [address] [address] Pebbles Ayers AST [Catalytic activity/Vol] 26 U/L Normal 15-37 [facility] Comment on above: Performed By: #### C MP, HSTROPN #### [facility] [address] [address] [address] Pebbles Ayers Bilirubin [Mass/Vol] 0.7 mg/dL Normal 0.2-1.0 [facility] Comment on above: Performed By: #### C MP, HSTROPN #### [facility] [address] [address] [address] Pebbles Ayers Calcium [Mass/Vol] 9.2 mg/dL Normal 8.5-10.1 [facility] Comment on above: Performed By: #### C MP, HSTROPN #### [facility] [address] [place] [address] Dr. Pebbles Ayers Chloride [Moles/Vol] 101 mmol/L Normal 98-107 [facility] Comment on above: Performed By: #### C MP, HSTROPN #### [facility] [address] [address] [address] Pebbles Ayers CO2 [Moles/Vol] 29.6 mmol/L Normal 21.0-32.0 [facility] Comment on above: Performed By: #### C MP, HSTROPN #### [facility] [address] [address] [address] Pebbles Ayers Creatinine [Mass/Vol] 1.16 mg/dL Normal 0.70-1.30 [facility] Comment on above: Performed By: #### C MP, HSTROPN #### [facility] [address] [address] [address] Pebbles Ayers EGFR-AF [place]ORE[place] >60 Normal >=60 [facility] Comment on above: Performed By: #### C MP, HSTROPN #### [facility] [address] [address] [address] Pebbles Ayers EGFR-NON AF [place] >60 Normal >=60 [facility] Comment on above: Performed By: #### C MP, HSTROPN #### [facility] [address] [address] [address] Pebbles Ayers Globulin (S) [Mass/Vol] 3.3 g/dL Normal [facility] Comment on above: Performed By: #### C MP, HSTROPN #### [facility] [address] [address] [address] Pebbles Ayers Glucose [Mass/Vol] 114 mg/dL Critically high 74-106 [facility] Comment on above: Performed By: #### C MP, HSTROPN #### [facility] [address] [address] [address] Pebbles Ayers Potassium [Moles/Vol] 4.0 mmol/L Normal 3.5-5.1 [facility] Comment on above: Performed By: #### C MP, HSTROPN #### [facility] [address] [address] [address] Pebbles Ayers Protein [Mass/Vol] 7.2 g/dL Normal 6.4-8.2 [facility] Comment on above: Performed By: #### C MP, HSTROPN #### [facility] [address] [place] [address] Dr. Pebbles Ayers Sodium [Moles/Vol] 139 mmol/L Normal 136-145 [facility] Comment on above: Performed By: #### C MP, HSTROPN #### [facility] [address] [address] [address] Pebbles Ayers Urea nitrogen [Mass/Vol] 31.0 mg/dL Critically high 7.0-18.0 [facility] Comment on above: Performed By: #### C MP, HSTROPN #### [facility] [address] [place] [address] Dr. Pebbles Ayers Urea nitrogen/Creatinin e [Mass ratio] 26.7 mg/mg Normal [facility] Comment on above: Performed By: #### C MP, HSTROPN #### [facility] [address] [address] [address] Pebbles Ayers PROTIMEon 12-31-2022 INR Coag (PPP) [Relative time] 0.97 {INR} Normal [facility] Comment on above: Performed By: #### P TT, PT #### [facility] [address] [place] [address] Dr. Pebbles Ayers INR GUIDELINES SEE BELOW Normal [facility] Comment on above: Result Comment: NICHOLE RED INR: 2.0 - 3.0 CONDITIONS NOT LISTED BELOW 2.5 - 3.5 FOR PROSTHETIC HEART VALVE REPLACEMENT 2.5 - 3.5 RECURRENT THROMBOSIS Performed By: #### P TT, PT #### [facility] [address] [place] [address] Dr. Pebbles Ayers PT Coag (PPP) [Time] 10.3 s Normal 9.0-11.6 [facility] Comment on above: Performed By: #### P TT, PT #### [facility] [address] [place] [address] Dr. Pebbles Ayers PTTon 12-31-2022 aPTT Coag (Bld) [Time] 27.6 s Normal 22.3-36.2 [facility] Comment on above: Performed By: #### P TT, PT #### [facility] [address] [place] [address] Dr. Pebbles Ayers TROPONIN, HIGH SENSITIVITYon 12-31-2022 HSTROP 6.2 pg/mL Normal 4.0-76.1 [facility] Comment on above: Result Comment: CUT- OFF POINTS HAVE BEEN ESTABLISHED BASED ON THE FOURTH UNIVERSAL DEFINITIONS OF MYOCARDIAL INFARCTION. THE UPPER REFERENCE LIMIT (URL) OF TROPONIN, DEFINED THE 99TH PERCENTILE OF cTnI DISTRIBUTION IN A REFERENCE POPULATION, HAS BEEN CONFIRMED THE DECISION THRESHOLD FOR [place] DIAGNOSIS. Performed By: #### C MP, HSTROPN #### [facility] [address] [place] [address] Dr. Pebbles Ayers XR hip LT min 2V(w/wo pelvis )*on 11-28-2022 XR hip LT min 2V(w/wo pelvis)* [facility] [place] [address] [place] [address] XRay Report Signed Patient: Petros Means MR#: [id number] : 1955 Acct:[id number] Age/Sex: 67 / M ADM Date: 11/28/22 Loc: XDUCLY Room: Type: [facility] Attending Dr: Agnes NORMAN Copies [...] Adi Portillo M.D.11/28/2022 1:12 PM Dictation Location: [address] [address] Transcribed By: [facility] 11/28/22 1312 Dictated By: Adi Portillo II, MD 11/28/22 1310 Signed By: 11/28/22 1312 Normal [facility] XR hip LT min 2V(w/wo pelvis)* [facility] [employer] Other XR hip LT min 2V(w/wo pelvis)* [facility] [employer] Other XR hip LT min 2V(w/wo pelvis)* [address] [place] [address] [employer] Other XR hip LT min 2V(w/wo pelvis)* [place] [address] [employer] Other XR hip LT min 2V(w/wo pelvis)* XRay Report [employer] Other XR hip LT min 2V(w/wo pelvis)* Signed [employer] Other XR hip LT min 2V(w/wo pelvis)* Patient: Petros Means MR#: [id number] [employer] Other XR hip LT min 2V(w/wo pelvis)* [id number] [employer] Other XR hip LT min 2V(w/wo pelvis)* : 1955 Acct:[id number] [employer] Other XR hip LT min 2V(w/wo pelvis)* Age/Sex: 67 / M ADM Date: 11/28/22 [employer] Other XR hip LT min 2V(w/wo pelvis)* Loc: XDUCLY Room: Type: [facility] [employer] Other XR hip LT min 2V(w/wo pelvis)* Attending Dr: Agnes Villalobos [facility] [employer] Other XR hip LT min 2V(w/wo pelvis)* Copies to: AGNES VILLALOBOS [facility] [employer] Other XR hip LT min 2V(w/wo pelvis)* [facility] [employer] Other XR hip LT min 2V(w/wo pelvis)* Date of Service: 11/28/22 [employer] Other XR hip LT min 2V(w/wo pelvis)* XR/XR hip LT min 2V(w/wo pelvis)*: LEFT HIP PAIN [employer] Other XR hip LT min 2V(w/wo pelvis)* XR hip LT min 2V(w/wo pelvis)* 11/28/2022 1:03 PM [employer] Other XR hip LT min 2V(w/wo pelvis)* SIGNS AND SYMPTOMS: Lateral and anterior left hip pain [employer] Other XR hip LT min 2V(w/wo pelvis)* PROTOCOL: Frontal radiograph the pelvis with frontal and frog-leg views of the left hip [employer] Other XR hip LT min 2V(w/wo pelvis)* COMPARISON: None [employer] Other XR hip LT min 2V(w/wo pelvis)* FINDINGS: [employer] Other XR hip LT min 2V(w/wo pelvis)* There is significant narrowing of the joint spaces of the hips left greater than right with [employer] Other XR hip LT min 2V(w/wo pelvis)* subcortical sclerosis, subcortical cystic change, and partial collapse of the articular surface [employer] Other XR hip LT min 2V(w/wo pelvis)* along the left femoral head. There is accompanying subcortical sclerosis and cystic change along the [employer] Other XR hip LT min 2V(w/wo pelvis)* acetabular roof bilaterally. Degenerative changes are noted in the lumbar spine. There is no [employer] Other XR hip LT min 2V(w/wo pelvis)* fracture or dislocation. 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 [employer] Other XR hip LT min 2V(w/wo pelvis)* No fracture or dislocation. [employer] Other XR hip LT min 2V(w/wo pelvis)* Impression dictated by: Adi Portillo M.D.11/28/2022 1:12 PM [employer] Other XR hip LT min 2V(w/wo pelvis)* Dictation Location: [place] [address] [employer] Other XR hip LT min 2V(w/wo pelvis)* Transcribed By: LENNIE 11/28/22 [facility] [employer] Other XR hip LT min 2V(w/wo pelvis)* Dictated By: Adi Portillo II, MD 11/28/22 [facility] [employer] Other XR hip LT min 2V(w/wo pelvis)* Signed By: [employer] Other XR hip LT min 2V(w/wo pelvis)* 11/28/22 [facility] [employer] Other Vital Signs Date Time Vital Sign Value Performing Clinician Facility 08-17-2024 11:39-0400 Body height 185.4 cm Robbie Smith MD Work Phone: [employer] 08-17-2024 11:39-0400 Body mass index (BMI) [Ratio] 32.72 kg/m2 Robbie Smith MD Work Phone: [employer] 08-17-2024 11:39-0400 Body weight 112.49 kg Robbie Smith MD Work Phone: [employer] 08-17-2024 11:39-0400 Diastolic blood pressure 80 mm[Hg] Robbie Smith MD Work Phone: [facility] 08-17-2024 11:39-0400 Heart rate 72 /min Robbie Smith MD Work Phone: [facility] 08-17-2024 11:39-0400 Systolic blood pressure 136 mm[Hg] Robbie Smith MD Work Phone: [facility] 05-09-2024 13:26-0400 Blood Pressure Location [facility] 05-09-2024 13:26-0400 Diastolic blood pressure 82 mm[Hg] Petros NILL [facility] 05-09-2024 13:26-0400 Heart rate 72 /min Petros NILL [facility] 05-09-2024 13:26-0400 Respiratory rate 16 /min Petros PENDLETONL [facility] 05-09-2024 13:26-0400 Systolic blood pressure 128 mm[Hg] Petros PENDLETONL [facility] 01-19-2023 15:35-0400 Heart rate 59 /min Justice Hernandezos [facility] 01-19-2023 15:35-0400 SaO2% (BldA) [Mass fraction] 94 % Justice Pocos [facility] 01-19-2023 15:35-0400 Respiratory rate 16 /min Justice Pocos [facility] 01-19-2023 15:35-0400 Diastolic blood pressure 75 mm[Hg] Justice Pocos [facility] 01-19-2023 15:35-0400 Mean blood pressure 101 mm[Hg] Justice Pocos [facility] 01-19-2023 15:35-0400 Systolic blood pressure 153 mm[Hg] Justice Pocos [facility] 01-19-2023 15:35-0400 Body temperature 98.06 [degF] Justice Pocos [facility] 01-19-2023 13:48-0400 Heart rate 56 /min Justice Pocos [facility] 01-19-2023 13:48-0400 SaO2% (BldA) [Mass fraction] 92 % Justice Pocos [facility] 01-19-2023 13:48-0400 Respiratory rate 16 /min Justice Pocos [facility] 01-19-2023 13:48-0400 Diastolic blood pressure 76 mm[Hg] Justice Pocos [facility] 01-19-2023 13:48-0400 Mean blood pressure 99 mm[Hg] Justice Pocos [facility] 01-19-2023 13:48-0400 Systolic blood pressure 143 mm[Hg] Justice Pocos [facility] 01-19-2023 11:11-0400 Heart rate 61 /min Justice Pocos [facility] 01-19-2023 11:11-0400 SaO2% (BldA) [Mass fraction] 94 % Justice Pocos [facility] 01-19-2023 11:10-0400 Diastolic blood pressure 71 mm[Hg] Justice Pocos [facility] 01-19-2023 11:10-0400 Mean blood pressure 95 mm[Hg] Justice Pocos [facility] 01-19-2023 11:10-0400 Systolic blood pressure 143 mm[Hg] Justice Pocos [facility] 01-19-2023 11:10-0400 Respiratory rate 16 /min Justice Pocos [facility] 01-19-2023 11:10-0400 Body temperature 97.16 [degF] Justice Pocos [facility] 01-19-2023 11:00-0400 Mean blood pressure 93 mm[Hg] Justice Pocos [facility] 01-19-2023 10:50-0400 Blood Pressure Location Justice Pocos [facility] 01-19-2023 10:50-0400 Mean blood pressure 91 mm[Hg] Justice Pocos [facility] 01-19-2023 10:50-0400 Respiratory rate 9 /min Justice Pocos [facility] 01-19-2023 10:45-0400 Mean blood pressure 86 mm[Hg] Justice Pocos [facility] 01-19-2023 10:45-0400 Respiratory rate 16 /min Justice Pocos [facility] 01-19-2023 10:40-0400 FIO2 100 % Justice Pocos [facility] 01-19-2023 10:35-0400 FIO2 100 % Justice Pocos [facility] 01-19-2023 10:30-0400 FIO2 100 % Justice Pocos [facility] 01-19-2023 06:28-0400 Body temperature 97.7 [degF] Justice Pocos [facility] 01-19-2023 06:28-0400 Heart rate 56 /min Justice Pocos [facility] 11-28-2022 13:30-0500 Body height 185.42 cm Agnes Villalobos Other [employer] Other 11-28-2022 13:30-0500 Body mass index (BMI) [Ratio] 31.66 kg/m2 Agnes Villalobos Other [employer] Other 11-28-2022 13:30-0500 Body temperature 98 [degF] Agnes Villalobos Other [employer] Other 11-28-2022 13:30-0500 Body weight 108.86 kg Agnes Villalobos Other [employer] Other 11-28-2022 13:30-0500 Diastolic blood pressure 86 mm[Hg] Agnes Villalobos Other [employer] Other 11-28-2022 13:30-0500 Respiratory rate 18 /min Agnes Villalobos Other [employer] Other 11-28-2022 13:30-0500 SaO2% (BldA) [Mass fraction] 97 % Agnes Villalobos Other [employer] Other 11-28-2022 13:30-0500 Systolic blood pressure 159 mm[Hg] Agnes Villalobos Other [employer] Other 08-18-2022 14:00-0400 Body height 185.42 cm Agnes Villalobos Other [employer] Other 08-18-2022 14:00-0400 Body mass index (BMI) [Ratio] 32.06 kg/m2 Agnes Bhagatault Other [employer] Other 08-18-2022 14:00-0400 Body temperature 97.3 [degF] Agnes Villalobos Other [employer] Other 08-18-2022 14:00-0400 Body weight 110.22 kg Agnes Villalobos Other [employer] Other 08-18-2022 14:00-0400 Diastolic blood pressure 89 mm[Hg] Agnes Villalobos Other [employer] Other 08-18-2022 14:00-0400 Respiratory rate 16 /min Agnes Villalobos Other [employer] Other 08-18-2022 14:00-0400 SaO2% (BldA) [Mass fraction] 96 % Agnes Villalobos Other [employer] Other 08-18-2022 14:00-0400 Systolic blood pressure 153 mm[Hg] Agnes Villalobos Other [employer] Other 09-29-2021 11:30-0500 Body height 185.42 cm Agnes Villalobos Other [employer] Other 09-29-2021 11:30-0500 Body mass index (BMI) [Ratio] 30.74 kg/m2 Agnes Villalobos Other [employer] Other 09-29-2021 11:30-0500 Body temperature 97.3 [degF] Agnes Villalobos Other [employer] Other 09-29-2021 11:30-0500 Body weight 105.69 kg Agnes Bhagatault Other [employer] Other 09-29-2021 11:30-0500 Diastolic blood pressure 85 mm[Hg] Agnes Villalobos Other [employer] Other 09-29-2021 11:30-0500 Respiratory rate 16 /min Agnes Villalobos Other [employer] Other 09-29-2021 11:30-0500 SaO2% (BldA) [Mass fraction] 97.3 % Agnes Villalobos Other [employer] Other 09-29-2021 11:30-0500 Systolic blood pressure 140 mm[Hg] Agnes Villalobos Other [employer] Other Encounters Encounter Date Encounter Type Care Provider Facility Start: 12-03-2024 End: 12-06-2024 Refill Ozzie Kimbrough SUBSTATION OPERATOR HELPER GENERATION-[employer] TECHNICAL OFFICER Work Phone: [facility] Comment on above: Med Refill Start: 09-14-2024 End: 09-14-2024 Refill Maral Solorio RN [facility] Comment on above: Med Refill Start: 08-17-2024 End: 08-17-2024 Office outpatient visit 15 minutes Robbie Smith MD Work Phone: [facility] Comment on above: Paroxysmal atrial fi brillation (CMS-HCC) (Primary Dx); Primary hypertension Start: 08-17-2024 End: 08-17-2024 ambulatory ROBBIE SMITH [facility] Start: 08-16-2024 End: 08-16-2024 Telephone encounter [facility] Start: 06-06-2024 End: 06-15-2024 Refill Lorena Mccann SUBSTATION OPERATOR HELPER GENERATION-OPTICS TECHNICAL OFFICER Work Phone: [facility] Comment on above: Med Refill Start: 05-09-2024 End: 05-09-2024 ambulatory Petros SANCHEZ Facility:[facility] Start: 05-09-2024 End: 05-09-2024 Patient encounter procedure Petros SANCHEZ [facility] Start: 05-05-2024 ambulatory Petros SANCHEZ Facility:[facility] Start: 04-07-2024 End: 04-12-2024 Refill Ozzie Kimbrough SUBSTATION OPERATOR HELPER GENERATION-OPTICS TECHNICAL OFFICER Work Phone: [facility] Comment on above: Med Refill Start: 04-05-2024 ambulatory Petros SANCHEZ Facility:[facility] Start: 02-12-2024 End: 02-15-2024 Refill Paco Tereza SUBSTATION OPERATOR HELPER GENERATION-OPTICS TECHNICAL OFFICER Work Phone: [facility] Comment on above: Med Refill Start: 01-06-2024 End: 01-07-2024 ambulatory JUSTICE CORDON Not Available Start: 11-18-2023 Refill Diogenes hernandez PA-C Work Phone: [facility] Comment on above: Med Refill Start: 03-12-2023 End: 03-13-[address] KARL GARCIA . Facility:[facility] Start: 02-25-2023 End: 02-26-[address] KARL GARCIA . Facility:[facility] Start: 01-19-2023 End: 01-19-2023 Admission to same day surgery center Justice Cordon [facility] Start: 12-31-2022 End: 12-31-2022 ambulatory ANAHI TY . Facility:[facility] Start: 12-04-2022 End: 04-05-2023 Recurring Justice Cordon [facility] Start: 12-04-2022 End: 12-24-2022 Pre-admission assessment Justice Cordon [facility] Start: 11-28-2022 End: 11-28-2022 ambulatory Agnes Villalobos Facility:[facility] Start: 11-28-2022 Office outpatient vi sit 15 minutes Agnes Eulogio [facility] Start: 11-28-2022 End: 11-28-2022 ambulatory PHYSICIAN NO [facility] Work Phone: Start: 11-28-2022 End: 11-28-2022 Patient encounter procedure PHYSICIAN NO [facility] Work Phone: Start: 08-18-2022 End: 08-18-2022 ambulatory Agnes Villalobos Other [employer] Other Start: 08-18-2022 Encounter for genera l adult medical examination without abnormal findings Agnes Bhagatault [facility] Start: 08-18-2022 Periodic preventive med est patient 65yrs& older Agnes Eulogio [facility] Start: 08-13-2022 End: 08-13-2022 ambulatory Agnes Villalobos Other [employer] Other Start: 08-13-2022 Telephone encounter Agneskristin Mcfarlandl t [facility] Start: 02-07-2022 End: 02-07-2022 ambulatory Agnes Villalobos Other [employer] Other Start: 02-07-2022 Telephone encounter Agneskristin Mcfarlandl t [facility] Start: 01-21-2022 End: 01-21-2022 ambulatory Agnes Villalobos Other [employer] Other Start: 01-21-2022 Telephone encounter Agneskristin Mcfarlandl t [facility] Start: 12-19-2021 End: 12-19-2021 ambulatory Agnes Villalobos Other [employer] Other Start: 12-19-2021 Telephone encounter Agnes mason [facility] Start: 11-10-2021 End: 11-10-2021 ambulatory Agnes Villalobos Other [employer] Other Start: 11-10-2021 Telephone encounter Agnes mason [facility] Start: 09-29-2021 End: 09-29-2021 ambulatory Agnes Villalobos Other [employer] Other Start: 09-29-2021 Encounter for genera l adult medical examination without abnormal findings Agnes Villalobos [facility] Start: 09-29-2021 Initial preventive medicine new patient 40-64yrs Agnes Villalobos [facility] Procedures Date Procedure Procedure Detail Performing Clinician Start: 08-17-2024 Follow-up visit Follow-up ROBBIE SMITH Start: 01-19-2023 Repair of hip Justice Poc os Start: 11-28-2022 Plain X-ray of left hip PHYSICIAN NO FAMILY Start: [birth year]01-1960 History of tonsillectomy Justice Pocos Repair of tendo achilles Young id Pocos Plan of Treatment Date Care Activity Detail Author Start: 08-17-2025 Adult BMI Screening Adult BMI Screen ing [facility] Start: 08-17-2025 Tobacco Screening Tobacco Screening [facility] Start: 08-17-2024 End: 08-17-2024 Patient encounter procedure 08/17/2024 11:45 AM EDT Office Visit [facility] [address] [place] [phone] Robbie Smith MD [address] [place] [facility] [place] [id number] [facility] Start: 07-28-2024 Adult BMI Screening Adult BMI Screen ing [facility] [employer] Start: 07-28-2024 Tobacco Screening Tobacco Screening [facility] Start: 07-02-2024 Influenza vaccination Influenza Vacc ine [facility] Start: 07-02-2023 Influenza vaccination Influenza Vacc ine [facility] Start: 2022 Fall Risk Screening Fall Risk Screen ing [facility] Start: 05-18-2021 DTaP,Tdap and Td Vac cines (3 - Td or Tdap) DTaP,Tdap and Td Vaccines (3 - Td or Tdap) [facility] Start: 05-01-2021 DTaP,Tdap and Td Vac cines (2 - Td or Tdap) DTaP,Tdap and Td Vaccines (2 - Td or Tdap) [facility] Start: 2007 Administration of varicella zoster vaccine Zoster (Shingles) Vaccine (1 of 2) [facility] Start: 1975 Adult BMI Follow Up Plan Adult BMI Follow Up Plan [facility] Start: 1969 Depression Screening Depression Scre ening [facility] ECG, Hospital Report Scan ECG, H ospital Report Scan ECG Routine Paroxysmal atrial fibrillation ([facility]-HCC) Ordered: 08/17/2024 [employer] Work Phone: Comment on above: Ordered: 08/17/2024 End: 11-22-2024 Magnesium [Mass/volume] in Serum or Plasma Magnesium Lab Routine Essential hypertension, benign 1 Occurrences starting 11/22/2023 until 11/22/2024 [employer] Work Phone: Comment on above: 1 Occurrences starti ng 11/22/2023 until 11/22/2024 Payers Date Payer Category Payer Medicare [id number] 2022 Self-pay [id number] 2022 Managed Care Other (unspecified) [facility] [id number] 2022 Private Health Insurance [facility] [id number] 2022-Present [phone] [address] [address] [place] [address] [id number] 1959 Unknown [id number] 1957 Unknown [id number] [id number] 1957 Unknown [id number] [id number] 1957 Unknown [id number] [id number] 1957 Unknown [id number] [id number] 1957 Unknown [id number] [id number] 1957 Unknown [id number] [id number] 1957 Unknown [id number] [id number] Unknown [id number] Unknown [id number] [id number] Social History Date Type Detail Facility Unknown if ever smoked [employer] Other Start: 11-07-2020 End: 11-20-2020 [facility] Start: 1955 Sex Assigned At Male [facility] Tobacco smoking status No Smokin g Status Entered [facility] Start: 11-17-2022 End: 05-09-2024 Tobacco smoking status Never smoked tobacco (finding) [facility] Tobacco smoking status Never [facility] Start: 11-17-2022 Tobacco use and exposure Smokeless tobacco non-user [employer] Start: 07-28-2023 End: 08-17-2024 Alcoholic beverage intake Current drinker of alcohol (finding) [employer] [facility] Start: 11-20-2020 End: 08-17-2024 [facility] [employer] [facility] Start: 10-18-2018 Alcohol Comment [facility] Start: 1955 Sex assigned at Not on file [facility] [employer] [facility] Start: 06-06-2015 Sex Male (finding) [facility] Medical Equipment Procedure Code Equipment Code Equipment Origin al Text Equipment Identifier Dates HIP TOTAL ROBOT ARTHROPLASTY Pocos DO Justice Kam 01/19/23 Unknown Hip L FDA [...] 01-19-2023 HIP TOTAL ROBOT ARTHROPLASTY Pocos DO, Justiec Kam 01/19/23 Unknown Hip L FDA Start: [...] Assessment Result Facility 05-09-2024 Functional Status N/A [facility] [place] Clinical Notes 09-29-2021 to 08-17-2024 Robbie Smith MD - 08/17/2024 11:45 AM EDTPatient InstructionsTelephone Encounter - Huyen Varma MA - 08/16/2024 11:30 AM EDTTelephone Encounter - Huyen Varma MA - 08/16/2024 11:30 AM EDT Note Date & Type Note Facility 08-17-2024 History of Present illness Narrative Petros Means Date of visit: 08/17/2024 Date of : 1955 Age: 69 y.o. Patient Active Problem List Diagnosis Hypertension Paroxysmal atrial fibrillation (CMS-HCC) Abnormal EKG Mitral regurgitation First degree AV block Palpitations Shortness of breath Allergies Allergen Reactions Sulfa (Sulfonamide Antibiotics) Current Outpatient Medications Medication Sig Dispense Refill aspirin 81 mg Take 1 tablet (81 mg total) by mouth daily. 30 tablet 11 atenoloL (TENORMIN) 50 mg tablet TAKE 1 TABLET(50 MG) BY MOUTH IN THE MORNING 90 tablet 0 docosahexaenoic acid/epa (FISH OIL ORAL) Take by mouth daily. flecainide (TAMBOCOR) 100 mg tablet Take 1 tablet (100 mg total) by mouth in the morning and 1 tablet (100 mg total) before bedtime. 180 tablet 0 [id number] ORAL Take by mouth daily. hydrALAZINE (APRESOLINE) 25 mg tablet TAKE 1 TABLET BY MOUTH EVERY MORNING AND EVERY NIGHT AT BEDTIME 180 tablet 2 lisinopril-hydroCHLOROthiazide (PRINZIDE,ZESTORETIC) 20-12.5 mg per tablet take 2 tablets by mouth in the morning 180 tablet 0 multivitamin capsule Take 1 capsule by mouth in the morning. TURMERIC ORAL Take by mouth daily. vitamin B complex (B COMPLEX ORAL) Take by mouth daily. No current facility-administered medications for this visit. Chief Complaint Patient presents with Follow-up Atrial Fibrillation History of Present Illness Patient doing well no major issues quite active no interference symptoms no chest pain no shortness breath no decline in function. We get again discussed the need for anticoagulation and he would like to think about it. He would like to discuss it with his . I did discuss his stroke risk at this point and pointed toward information. ECG looks fine today Past Medical History: Diagnosis Date Abnormal EKG Hypertension Paroxysmal atrial fibrillation (CMS-HCC) No data recorded No data recorded No data recorded Past Surgical History: Procedure Laterality Date TONSILLECTOMY TOTAL HIP ARTHROPLASTY Left 12/2022 Family History Problem Relation Age of Onset No Known Problems Mother No Known Problems Father Social History Socioeconomic History Marital status: Spouse name: Not on file Number of children: Not on file Years of education: Not on file Highest education level: Not on file Occupational History Not on file Tobacco Use Smoking status: Never Smokeless tobacco: Never Vaping Use Vaping status: Never Used Substance and Sexual Activity Alcohol use: Yes Alcohol/week: 15.0 standard drinks of alcohol Types: 15 Cans of beer per week Comment: BEER Drug use: No Sexual activity: Defer Other Topics Concern Caffeine Use Yes Social History Narrative Not on file Social Drivers of Health Financial Resource Strain: Not on file Food Insecurity: No Food Insecurity (08/17/2024) Hunger Screening Food Insecurity - Worry: Never True Food Insecurity - Inability: Never True Transportation Needs: Not on file Physical Activity: Not on file Stress: Not on file Social Connections: Not on file Interpersonal Safety: Not on file Housing Instability: Not on file Review of Systems Review of Systems Constitutional: Negative for malaise/fatigue and weight gain. HENT: Negative for hearing loss and nosebleeds. Eyes: Negative for blurred vision and double vision. Respiratory: Negative for shortness of breath, sleep disturbances due to breathing and wheezing. Endocrine: Negative for polydipsia. Skin: Negative for color change, itching and rash. Musculoskeletal: Negative for back pain, falls, joint swelling, muscle cramps and muscle weakness. Gastrointestinal: Negative for heartburn, hematochezia and melena. Genitourinary: Negative for hematuria. Neurological: Negative for dizziness, headaches, light-headedness, loss of balance, numbness, seizures and tremors. Psychiatric/Behavioral: Negative for altered mental status, depression and memory loss. CARDIOVASCULAR: Please review HPI. Physical Examination General appearance: Alert, oriented and cooperative. In no acute distress. Skin: Warm and dry to touch. Head: Normocephalic, without obvious abnormality, atraumatic. Ears, Nose, Mouth, Throat: Throat clear without erythema or exudate. Dentition intact. Eyes: Conjunctivae unremarkable, EOM intact. Neck: No JVD, No carotid bruit. Neck supple, trachea midline. Respiratory: Clear to auscultation bilaterally, no use of accessory muscles. Cardiovascular: RRR with normal S1 and S2 with no murmurs. Gastrointestinal: Soft, non-tender. Bowel sounds normal. Musculoskeletal: No peripheral edema. Neurologic: Oriented to time, person and place, affect appropriate. No focal/major motor defects noted. Psychiatric: Appropriate mood, memory and judgement. VITAL SIGNS: BP 136/80 Pulse 72 Ht 185.4 cm (6' 1 ) Wt 112.5 kg (248 lb) BMI 32.72 kg/m No orders of the defined types were placed in this encounter. There are no discontinued medications. [id number] Score: 2 2.2% Stroke risk per year, 2.9% risk of stroke/TIA/systemic embolism IMPRESSIONS/PLAN There are no diagnoses linked to this encounter. 1. Paroxysmal atrial fibrillation on antiarrhythmic flecainide. Doing well with this. We discussed anticoagulation I strongly recommended this. He would like to discuss with . His CHADS2 Vasc score is 2 for age and hypertension 2. Hypertension good control 3. History of first-degree heart block No change in meds at this time patient doing well again I recommended anticoagulation. 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 FOLLOW UP No follow-ups on file. PCP: KARL GARCIA MD Referring Physician: Karl Garcia MD [address] [place] [address] documented in this encounter [employer] 08-17-2024 Instructions Robbie Smith MD - 08/17/2024 11:45 AM EDT ELIQUIS and XARELTO are the most commonly use drugs these days to prevent stroke in patients with AFib [id number] Score: 2 2.2% Stroke risk per year, 2.9% risk of stroke/TIA/systemic embolism _ documented in this encounter [facility] 08-16-2024 Miscellaneous Notes Left message for patient to remind them to bring their most current medication list with them to their appointment. documented in this encounter [facility] 08-16-2024 Telephone encounter Note Left message for patient to remind them to bring their most current medication list with them to their appointment. [facility] 06-06-2024 Miscellaneous Notes Last ov 07/28/23 Cmp 04/05/24 For further refills, pt needs to complete magnesium labs as ordered on 11/22/23. Letter mailed to pt. Science Writer attempted to contact ptjulee. documented in this encounter [facility] 06-06-2024 Telephone encounter Note Last ov 07/28/23 Cmp 04/05/24 For further refills, pt needs to complete magnesium labs as ordered on 11/22/23. Letter mailed to pt. Science Writer attempted to contact ptjulee. [facility] 05-09-2024 Note General Surgery Offi ce/Clinic Note [...] 05/09/2024 Family History Hypertension: Mother. Stroke: Father. [facility] Comment on above: Result Comment: Elec tronically Signed By: LAURA GRIJALVA, Petros Suarez\Date and Time Signed: 05/09/24 13:53 EDT 04-07-2024 Miscellaneous Notes OV 07/28/2023. Next OV 08/17/2024 documented in this encounter [facility] 04-07-2024 Telephone encounter Note OV 07/28/2023. Next OV 08/17/2024 [facility] 01-19-2023 Evaluation + Plan note Extrac bart from: Title:CSB post op Author:Dong Worley MD Date:01/19/23 Plan Transfer/Discharge: Transfer/Discharge Discharge when meets criteria ( To home ). Extracted from: Title:CSB GA Author:Dong Worley MD Date:01/19/23 Plan [place] [employer] Anesthesiologists (ASA) physical status classification: Class II. Anesthetic Preoperative Plan: Anesthesia. [facility]03-21-2023 Hospital Discharge instructions Patient Education [...] as possible. If the spirometer includes a public speaking coach indicator, use this to guide you [...] 02/28/2008 Document Revised: 11/10/2018 Document Reviewed: 08/31/2018 [employer] Patient Education 2020 [employer]. 01/19/2023 10:46:31 Post Op Patient Instructions - FT (CUSTOM) 01/12/2023 07:24:00 Pocos - Hip Replacement Arthroplasty, Revised 12/23/11. (Custom) [place], [place] [facility] DISCHARGE INSTRUCTIONS HIP REPLACEMENT [...] will continue at home, possible with the assistant manager bilingual of Home Health Physical Therapy or in the hospital as an outpatient. When you have become independent withthe physical therapy program, this will then be discontinued as a supervised program and you will be instructed to continue the physical therapy exercises at home. DRIVING: Do NOT Drive FOLLOW-UP OFFICE VISIT: 4 weeks Postop Justice Cordon, DO [facility] [address] [place] [phone] Reviewed: 02-06 Revised: 11/12 Follow Up Care 12/04/2022 11:50:21 With:Justice Cordon Address: [address] [place], [place] [id number] Business (1) When:02/17/2023 15:15:00 Comments:Keep scheduled appointment [facility]01-28-2023 Evaluation note* Encounter Date Diagnosis Assessment Notes Treatment Notes Treatment Clinical Notes Nov, Left hip pain (ICD-10 - M25.552) Referral placed due to findings of Xrays. Take medication as directed. [employer] Other 10-18-2022 Evaluation note* Encounter Date Diagnosis [...] joints (ICD-10 - M15.9) Continue current medication [employer] Other 11-29-2021 Evaluation note* Encounter Date Diagnosis [...] Atrial fibrillation, unspecified type (ICD-10 - I48.91) [employer] Other evaluation + Plan note Future Appointments Appointment Date:01/19/2023 09:00:00 AM Scheduled Provider: Location:[facility] Appointment Type:Surgery FT [facility] noteNo InformationN[employer] Other evaluation noteNo assessment information available [facility] Work Phone: evaluation note* Diagnosis Essential hypertension, benign documented [facility] [employer] [facility]* Diagnosis Essential hypertension, benign- Primary [facility] Diagnosis Essential hypertension, benign documented in this [facility] [employer] System[facility] note* Diagnosis Paroxysmal atrial fibrillation ([facility]-H[facility])- Primary Atrial fibrillation Primary hypertension Unspecified essential hypertension [facility] - Reported* Type Description Date Medical History A-fib Medical History Hypertension Surgical History tonsillectomy and adenoidectomy Hospitalization History fracture repair as a chi ld [employer] Other Hisphng general Narrative - Reported* Type Description Date Medical History A-fib Medical History Hypertension Medical History Osteoarthritis Medical History erectile dysfunction Surgical History tonsillectomy and adenoidectomy Hospitalization History fracture repair as a chi [employer] Other Hospital course Narrative No data available for this section [facility] instructions No data available for this section [facility] HospitalInstructionsNot on filedocumented in this encounter [facility] on filedocumented in this encounter [facility] SystemInstructionsNot on filedocumented in this encounter [facility] SystemInstructionsNot on filedocumented in this encounter [facility] note No data available for this section [facility] Advance Directives Advance Directive Response Recorded Date/ Time Advance Directives No January 28, 020 6:43am Summary Purpose Family History No Family History Records FoundNo Family History Records FoundNo Family History Records Found No data available for this section No Family History Records FoundNo Family History Records FoundNo Family History Records Found Additional Source Comments REASON FOR VISIT (unrecogniz ed section and content) Reason Comments Med Refill Reason Comments Follow-up Atrial Fibrillation Reason Onset Date Comments Med Refill 09/14/2024 Care Teams (unrecognized sec tion and content) Team Status: Inactive Member Role Status Dates PHYSICIAN NO FAMILY Primary Care Provider Active EMERSON Barriga Attending Provider Active Team Status: Active Member Role Status Dates PHYSICIAN NO FAMILY Primary Care Provider Active Sales Agent Food Vending Service Relationship Specialty Start Date End Date Karl Garcia MD PCP - General Family Medicine 01/06/23 Sales Agent Food Vending Service Relationship Specialty Start Date End Date Karl Garcia MD [address] [place] [address] PCP - General Family Medicine 01/06/23 Sales Agent Food Vending Service Relationship Specialty Start Date End Date Karl Garcia MD PCP - General Family Medicine 01/06/23 Sales Agent Food Vending Service Relationship Specialty Start Date End Date Karl Garcia MD PCP - General Family Medicine 01/06/23 Sales Agent Food Vending Service Relationship Specialty Start Date End Date Karl Garcia MD PCP - General Family Medicine 01/06/23 Sales Agent Food Vending Service Relationship Specialty Start Date End Date Karl Garcia MD PCP - General Family Medicine 01/06/23 Goals (unrecognized section and content) Goals may be documented in a n alternate section (unrecognized sect ion and content) No Status Records FoundNo Status Records FoundNo Status Records FoundNo Status Records FoundNo Status Records FoundNo Status Records Found INFORMATION SOURCE (unrecogn ized section and content) DATE CREATED AUTHOR 12/07/2022 [facility] DATE CREATED AUTHOR AUTHOR'S ORGANIZ ATION 03/15/2023 [facility] DATE CREATED AUTHOR AUTHOR'S ORGANIZ ATION 01/13/2024 [facility] EPIC DATE CREATED AUTHOR AUTHOR'S ORGANIZ ATION 06/13/2024 M[facility]quez Dirk [facility] DATE CREATED AUTHOR AUTHOR'S ORGANIZ ATION 08/20/2024 [facility] DATE CREATED AUTHOR AUTHOR'S ORGANIZ ATION 10/12/2024 [facility] FOR RECORDS PERTAINING TO PATIENTS WHO [...] BE BASED ON THE PRIMARY CLINICAL RECORDS. [employer] provides no warranty or guarantee of the accuracy or completeness of information in this document.
[2024-12-28 15:52] LABS: Basophils Absolute Auto 0.1 10^3/uL (0.0-0.1); Basophils Percent Auto 0.7 % (0.2-2.0); Eosinophils Absolute Auto 0.2 10^3/uL (0.0-0.7); Hematocrit 41.8 % (42.0-54.0); Hemoglobin 14.6 g/dL (14.0-18.0); Immature Granulocytes Abs Auto 0.03 10^3/uL (0.00-0.03); Immature Granulocytes Pct Auto 0.3 % (0.0-0.5); Lymphocytes Absolute Auto 2.1 10^3/uL (1.2-3.8); Lymphocytes Percent Auto 19.3 % (20.5-60.0); Mean Corpuscular HGB Conc 34.9 g/dL (29.9-35.2); Mean Corpuscular Hemoglobin 32.9 pg (25.9-34.0); Mean Corpuscular Volume 94.1 fL (80.0-94.0); Mean Platelet Volume 9.7 fL (9.5-13.5); Monocytes Absolute Auto 0.9 10^3/uL (0.3-0.8); Monocytes Percent Auto 8.7 % (1.7-12.0); Neutrophils Absolute Auto 7.4 10^3/uL (1.4-6.5); Platelet Count 367 10^3/uL (150-450); Red Blood Count 4.44 10^6/uL (4.70-6.10); Red Cell Distribution Width 11.9 % (11.0-15.0); White Blood Count 10.7 10^3/uL (4.0-11.0)
[2024-12-28 15:59] LABS: Erythrocyte Sedimentation Rate 42 mm/hr (<=20)
[2024-12-28 16:23] LABS: Alanine Aminotransferase 27 U/L (16-63); Albumin Globulin Ratio 0.9; Albumin Level 3.6 g/dL (3.4-5.0); Alkaline Phosphatase 76 U/L (46-116); Anion Gap 13.8; Aspartate Amino Transferase 19 U/L (15-37); BUN Creatinine Ratio 17.6; Bilirubin Total 0.4 mg/dL (0.2-1.0); Calcium 9.2 mg/dL (8.5-10.1); Carbon Dioxide 26.5 mmol/L (21.0-32.0); Chloride 101 mmol/L (98-107); Estimated GFR (African America 58 (>=60 mL/min/1.73m^2); Estimated GFR (Non-African Ame 47 (>=60 mL/min/1.73m^2); Glucose 103 mg/dL (74-106); Potassium 4.3 mmol/L (3.5-5.1); Sodium 137 mmol/L (136-145); Total Protein 7.6 g/dL (6.4-8.2)
== END 2024-12-28 15:35 | disposition home or self-care (01) ==
LOC: LAB 15:36
PROVIDERS: PCP Family Medicine; Visit Provider Family Medicine
DX: M10.9 Gout, unspecified (principal)
CPT/HCPCS: 36415; 80053; 84550; 85025; 85652

== ENCOUNTER 2025-09-19 12:12 | Outpatient (OUT) | payer OTHER, SELFPAY ==
[2025-09-19 12:48] LABS: Hematocrit 44.4 % (42.0-54.0); Hemoglobin 15.4 g/dL (14.0-18.0); Immature Granulocytes Abs Auto 0.02 10^3/uL (0.00-0.03); Immature Granulocytes Pct Auto 0.3 % (0.0-0.5); Lymphocytes Absolute Auto 1.4 10^3/uL (1.2-3.8); Mean Corpuscular HGB Conc 34.7 g/dL (29.9-35.2); Mean Corpuscular Hemoglobin 33.7 pg (25.9-34.0); Mean Corpuscular Volume 97.2 fL (80.0-94.0); Platelet Count 244 10^3/uL (150-450); Red Blood Count 4.57 10^6/uL (4.70-6.10); White Blood Count 6.5 10^3/uL (4.0-11.0)
[2025-09-19 13:17] LABS: Alanine Aminotransferase 35 U/L (16-63); Albumin Globulin Ratio 1.1; Albumin Level 3.6 g/dL (3.4-5.0); Alkaline Phosphatase 66 U/L (46-116); Anion Gap 7.8; Aspartate Amino Transferase 21 U/L (15-37); Blood Urea Nitrogen 14.0 mg/dL (7.0-18.0); Calcium 9.3 mg/dL (8.5-10.1); Carbon Dioxide 31.2 mmol/L (21.0-32.0); Chloride 105 mmol/L (98-107); Cholesterol 174 mg/dL (<=200); Estimated GFR (African America >60 (>=60 mL/min/1.73m^2); Estimated GFR (Non-African Ame >60 (>=60 mL/min/1.73m^2); Free T3 2.24 pg/mL (2.18-3.98); Globulin 3.2 g/dL; Glucose 112 mg/dL (74-106); HDL Cholesterol 43 mg/dL (40-60); Potassium 4.0 mmol/L (3.5-5.1); Sodium 140 mmol/L (136-145); Thyroid Stimulating Hormone 1.714 uIU/mL (0.358-3.740); Total Protein 6.8 g/dL (6.4-8.2); Triglycerides 81 mg/dL (<=150); Uric Acid 6.6 mg/dL (3.5-7.2); VLDL CHOLESTEROL 16.2 mg/dL
[2025-09-20 08:39] LABS: Magnesium 2.1 mg/dL (1.8-2.4)
== END 2025-09-19 12:13 | disposition home or self-care (01) ==
LOC: LAB 12:13
PROVIDERS: PCP Family Medicine; Visit Provider Family Medicine
DX: E03.9 Hypothyroidism, unspecified (principal); E83.42 Hypomagnesemia; I10 Essential (primary) hypertension; M10.9 Gout, unspecified; E78.5 Hyperlipidemia, unspecified; R73.09 Other abnormal glucose; Z12.12 Encounter for screening for malignant neoplasm of rectum; Z12.5 Encounter for screening for malignant neoplasm of prostate; D50.9 Iron deficiency anemia, unspecified
CPT/HCPCS: 36415; 80053; 80061; 83036; 83525; 83735; 84436; 84443; 84481; 84550; 85025; G0103